=== PATIENT | female | born 1960 | race African-American/Black ===

== ENCOUNTER 2021-04-27 19:47 | Observation (INO) ==
--- NOTE | 2021-04-27 20:22 | DR.EXTPAIN ---
HPI Time seen Time Seen by Provider: 04/27/21 20:10 PCP Primary Care Physician: DIRK Complaint/Symptoms Chief Complaint:: LEFT LEG PAIN, SWELLING, TENDER, HOT TO TOUCH Self Treatment fo Chief Complaint: HYDROCODONE COVID-19 Coronavirus risk:travel/contact w/high risk person: No Has patient experienced Coronavirus symptoms: No Nurses notes reviewed Nurses Notes Review: Yes Source History Provided: Patient Mode of arrival Mode of Arrival: Wheelchair Timing Onset of Chief Complaint: 04/25/21 Other history Other History: pt is c/o of pain in LLE, h/o of venous stasis and venous stent, warm c/o of pain PMH PMH Past Medical History: Yes Past Medical History: Hypertension Past Medical History Comment: PVD Past Surgical History: Yes Past Surgical History Comment: TUBAL LIGATION, ABBLATION BOTH LEGS, VENOUS STENT TO RT LEG Family History History of Family Medical Conditions: Yes Family Medical History: [place], Coronary Artery Disease and Hypertension Social History Does patient currently use any type of tobacco product: No Have you used tobacco products in the last 12 months: No Type of Tobacco Use: None Does any household member use tobacco: No Alcohol Use: None Do you use any recreational Drugs:: No Lives With: Alone Lives Where: Home Travel Risk Coronavirus risk:travel/contact w/high risk person: No Has patient experienced Coronavirus symptoms: No Infectious screening In the last 2 months have you had wt loss of >10#?: NO Have you had fever, night sweats or hemotysis?: No Have you traveled outside the country in the last 6 months?: No Isolation: Standard ROS Review of Systems Constitutional: No Symptoms Reported Eyes: No Symptoms Reported ENTM: No Symptoms Reported Respiratoy: No Symptoms Reported Cardiovascular: No Symptoms Reported Gastrointestinal/Abdominal: No Symptoms Reported Genitourinary: No Symptoms Reported Neurological: No Symptoms Reported Musculoskeletal: See HPI, Hip and Leg Integumentary: No Symptoms Reported Hematologic/Lymphatic: No Symptoms Reported Endocrine: No Symptoms Reported Psychiatric: No Symptoms Reported All Other Systems: Reviewed and Negative PE Vital Signs Vitals: Temperature 98.1 F Pulse Rate [Left] 105 Pulse Rate 106 Respiratory Rate 24 Blood Pressure [Left Arm] 125/73 Blood Pressure 140/74 O2 Sat by Pulse Oximetry 100 General Limitations: No Limitations General Appearance: Alert, In No Apparent Distress and Obese Head Head Exam: Normal Inspection Eyes Eye exam: Normal Appearance ENT ENT Exam: Normal Exam Neck Neck Exam: Normal Inspection Chest Chest Inspection: Normal Inspection Respiratory Respiratory Exam: Normal Lung Sounds Bilat Cardiovascular Cardiovascular Exam: Regular Rate and Normal Rhythm Abdominal Exam Abdominal Exam: Normal Inspection, Normal Bowel Sounds and Soft Extremities Extremities Exam: Normal Inspection Lower Extremities Lower Leg Exam: Tenderness, Erythema and Palpable Cord Ankle Exam: Normal Inspection Foot/Toe Exam: Normal Inspection Back Back Exam: Normal Inspection Neurological Neurological Exam: Alert, Oriented X3 and CN II-XII Intact Psychiatric Psychiatric Exam: Normal Affect and Normal Mood Skin Skin Exam: Warm, Dry, Intact, Normal Color and Other (venous stasis ulcer on right) Other Exam Other Exam: warm LE, due to body habitus, difficult to doppler pulses but appear to correlating to pulse on monitor MDM Differential Diagnosis Differential Diagnosis: Abrasion, Contusion, Fracture, Hematoma, Laceration, Neurovascular Injury, Open Fracture, Sprain and Other COURSE Treatment Treatment: appears to have DVT, does not appear to be acute vascular occlusion, will get U/S Reevaluation 1st: Unchanged 2nd: Unchanged (DVT, spoke with Dr zamzam dodson eligibility consultant for [facility]ih[facility] (her vascular surgeon), Peggy on diversion, he would treat medically at this point, will admit, replacing K, spoke with Danica) Education/Counseling Education/Counseling: Patient Educated On: Treatment, Diagnosis and Prognosis ROR Labs Reviewed Laboratory Results Reviewed?: Yes Result Diagrams: 04/27/21 20:44 04/27/21 20:44 Laboratory: WBC 9.5 X10^3/uL (3.6-10.0) 04/27/21 20:44 RBC 4.15 X10^6/uL (3.5-5.4) 04/27/21 20:44 Hgb 12.1 g/dL (12.0-16.0) 04/27/21 20:44 Hct 34.6 % (36.0-47.0) L 04/27/21 20:44 MCV 83.4 fL (80.0-100.0) 04/27/21 20:44 MCH 29.2 pg (27.0-34.0) 04/27/21 20:44 MCHC 35.1 g/dL (33.0-35.0) H 04/27/21 20:44 RDW 12.8 % (11.6-16.5) 04/27/21 20:44 Plt Count 123 X10^3/uL (150.0-450.0) L 04/27/21 20:44 MPV 9.0 fL (7.4-11.0) 04/27/21 20:44 Neut % (Auto) 69.2 % (42.0-75.0) 04/27/21 20:44 Lymph % (Auto) 18.3 % (21.0-51.0) L 04/27/21 20:44 [place] % (Auto) 9.5 % (0.0-13.0) 04/27/21 20:44 Eos % (Auto) 2.6 % (0.9-2.9) 04/27/21 20:44 Baso % (Auto) 0.4 % (0.2-1.0) 04/27/21 20:44 Neut # (Auto) 6.6 x10^3/uL (2.2-4.8) H 04/27/21 20:44 Lymph # (Auto) 1.7 X10^3/uL (1.3-2.9) 04/27/21 20:44 [place] # (Auto) 0.9 x10^3/uL (0.3-0.8) H 04/27/21 20:44 Eos # (Auto) 0.3 x10^3/uL (0.0-0.2) H 04/27/21 20:44 Baso # (Auto) 0.0 X10^3/uL (0.0-0.1) 04/27/21 20:44 Absolute Nucleated RBC 0.1 /100WBC 04/27/21 20:44 PT 15.0 SECONDS (11.8-14.3) 04/27/21 20:44 INR Target Range - 04/27/21 20:44 INR 1.23 (0.8-1.3) 04/27/21 20:44 APTT 32.4 SECONDS (22.9-36.5) 04/27/21 20:44 PTT Comment - 04/27/21 20:44 D-Dimer > 20.00 ug/ml (0.0-0.57) H* 04/27/21 20:44 D-Dimer Cancelled 04/27/21 20:44 Sodium 139 mmol/L (136-145) 04/27/21 20:44 Corrected Sodium 140 mmol/L (136-145) 04/27/21 20:44 Potassium 2.7 mmol/L (3.5-5.1) L* 04/27/21 20:44 Chloride 100 mmol/L (98-107) 04/27/21 20:44 Carbon Dioxide 30.4 mmol/L (21-32) 04/27/21 20:44 BUN 29 mg/dL (7-18) H 04/27/21 20:44 Creatinine 1.22 mg/dL (0.55-1.02) H 04/27/21 20:44 Est GFR (MDRD) Af Amer 57 (>60) L 04/27/21 20:44 Est GFR (MDRD) Non-Af 47 (>60) L 04/27/21 20:44 Glucose 123 mg/dL (65-99) H 04/27/21 20:44 Calcium 8.8 mg/dL (8.5-10.1) 04/27/21 20:44 Corrected Calcium TNP 04/27/21 20:44 Magnesium 2.2 mg/dL (1.7-2.9) 04/27/21 20:44 Magnesium 2.2 mg/dL (1.7-2.9) 04/27/21 20:44 Total Bilirubin 0.80 mg/dL (0.2-1.0) 04/27/21 20:44 AST 22 Units/L (15-37) 04/27/21 20:44 ALT 20 Units/L (12-78) 04/27/21 20:44 Alkaline Phosphatase 53 Units/L (46-116) 04/27/21 20:44 Creatine Kinase 206 Units/L (26-192) H 04/27/21 20:44 CK-MB (CK-2) < 1.0 ng/mL (0-4.0) 04/27/21 20:44 CK/CKMB % Calc 0.5 % (<4) 04/27/21 20:44 Troponin I < 0.02 ng/mL (0-1.5) 04/27/21 20:44 Total Protein 7.9 g/dL (6.4-8.2) 04/27/21 20:44 Albumin 3.4 g/dL (3.4-5.0) 04/27/21 20:44 Globulin 4.5 g/dL (2.5-4.5) 04/27/21 20:44 Albumin/Globulin Ratio 0.8 Ratio (1.1-2.1) L 04/27/21 20:44 XRAY XRAY Interpreted by: Radiologist X-ray Results: IMPRESSION 1. No evidence of deep venous thrombus in the right lower extremity. 2. Occlusive deep venous thrombus in the left lower extremity from the common femoral vein to the popliteal vein. Opioid Opioid Risk Tool Age (Jarrod box if 16-45): No History of Preadolescent Sexual Abuse: No Total: 0 Total Score Risk Category: Low Risk Copyright: Placido CALIXTO predicting aberrant behaviors Diagnosis Discharge Problem: Acute hypokalemia DVT (deep venous thrombosis) Qualifiers: DVT location: lower extremity Affected thrombotic vein of extremity: unspecified lower extremity proximal vein Chronicity: acute Laterality: left Qualified Code(s): I82.4Y2 - Acute embolism and thrombosis of unspecified deep veins of left proximal lower extremity
[2021-04-27 20:53] LABS: BASOPHILS % (AUTO) 0.4 % (0.2-1.0); EOSINOPHILS # (AUTO) 0.3 x10^3/uL (0.0-0.2); EOSINOPHILS % (AUTO) 2.6 % (0.9-2.9); HEMATOCRIT 34.6 % (36.0-47.0); HEMOGLOBIN 12.1 g/dL (12.0-16.0); LYMPHOCYTES # (AUTO) 1.7 X10^3/uL (1.3-2.9); LYMPHOCYTES % (AUTO) 18.3 % (21.0-51.0); MEAN CORPUSCULAR HEMOGLOBIN 29.2 pg (27.0-34.0); MEAN CORPUSCULAR HGB CONC 35.1 g/dL (33.0-35.0); MEAN CORPUSCULAR VOLUME 83.4 fL (80.0-100.0); MONOCYTES # (AUTO) 0.9 x10^3/uL (0.3-0.8); MONOCYTES % (AUTO) 9.5 % (0.0-13.0); NEUTROPHILS # (AUTO) 6.6 x10^3/uL (2.2-4.8); NEUTROPHILS % (AUTO) 69.2 % (42.0-75.0); PLATELET COUNT 123 X10^3/uL (150.0-450.0); RED BLOOD COUNT 4.15 X10^6/uL (3.5-5.4); RED CELL DISTRIBUTION WIDTH 12.8 % (11.6-16.5); WHITE BLOOD COUNT 9.5 X10^3/uL (3.6-10.0)
[2021-04-27 21:12] LABS: ALANINE AMINOTRANSFERASE 20 Units/L (12-78); ALBUMIN 3.4 g/dL (3.4-5.0); ALKALINE PHOSPHATASE 53 Units/L (46-116); ASPARTATE AMINO TRANSFERASE 22 Units/L (15-37); BLOOD UREA NITROGEN 29 mg/dL (7-18); CALCIUM 8.8 mg/dL (8.5-10.1); CARBON DIOXIDE 30.4 mmol/L (21-32); CHLORIDE 100 mmol/L (98-107); CKMB % 0.5 % (<4); COR NA(FOR HYPERGLY) 140 mmol/L (136-145); CREATINE KINASE 206 Units/L (26-192); CREATINE KINASE MB < 1.0 ng/mL (0-4.0); CREATININE 1.22 mg/dL (0.55-1.02); MAGNESIUM 2.2 mg/dL (1.7-2.9); SODIUM 139 mmol/L (136-145); TOTAL PROTEIN 7.9 g/dL (6.4-8.2); TROPONIN I < 0.02 ng/mL (0-1.5); eGFR NON BLACK RACES 47 (>60)
[2021-04-27] MEDS ORDERED: POTASSIUM CHL 40 MEQ/NS 0.45% 500 ML IV PRN (21:15)
[2021-04-27] MEDS ORDERED: MICRO K EXTEN CAP 10 MEQ PO PRN (21:15)
[2021-04-27] MEDS ORDERED: POTASSIUM CHLORIDE LIQ 20 MEQ UDC PO PRN (21:15)
[2021-04-27] MEDS ORDERED: KLOR-CON PO PRN (21:15)
[2021-04-27] MEDS ORDERED: POTASSIUM CHL 60 MEQ/NS 0.45% 500 ML IV PRN (21:15)
--- NOTE | 2021-04-27 21:43 | VAS ---
HISTORYBIL LEG PAIN, EDEMA, REDNESSSTUDYLOWER EXT VENOUS, BILATERALCOMPARISONNo relevant prior studies available.TECHNIQUEGrayscale and color Doppler images of the lower extremities.FINDINGSRight lower extremity:Common femoral, femoral and popliteal veins demonstrate normal compressibility, color Doppler flow, waveforms and augmentation with no filling defects.Soft tissues: UnremarkableLeft lower extremity:Lack of compressibility of the common femoral vein, greater saphenous vein, femoral vein and popliteal vein with absent color Doppler flow and no detectable vascular waveforms.Soft tissues:UnremarkableIMPRESSION1. No evidence of deep venous thrombus in the right lower extremity.2. Occlusive deep venous thrombus in the left lower extremity from the common femoral vein to the popliteal vein.Electronically signed by: Tao Boudreaux (Apr 27, 2021 21:40:43)
[2021-04-27] MEDS ORDERED: K-RIDER 10 MEQ/NS 100 ML 10 MEQ/100 ML BAG IV ONE ×2 (21:49→22:38)
[2021-04-27] MEDS: K-RIDER 10 MEQ/NS 100 ML 10 MEQ/100 ML BAG IV PRN ×2 (21:55→22:54)
[2021-04-27] MEDS ORDERED: K-DUR TAB 20 MEQ PO ONE (21:56)
[2021-04-27] MEDS ORDERED: LOVENOX INJ 120 MG SYR SC SCH (22:00)
[2021-04-27] MEDS ORDERED: LOVENOX INJ 30 MG SYR SC ONE (22:08)
[2021-04-27] MEDS ORDERED: LOVENOX INJ 120 MG SYR SC ONE (22:08)
[2021-04-27] MEDS: LOVENOX INJ 150 MG SYR SC SCH (22:13)
[2021-04-28] MEDS ORDERED: ZOFRAN INJ 4 MG VIAL IVP PRN (00:37)
[2021-04-28] MEDS ORDERED: NORCO 5/325 MG TAB PO PRN ×2 (00:37→01:07)
[2021-04-28] MEDS ORDERED: MORPHINE SULFATE INJ 2 MG INJ IVP PRN ×2 (00:37→05:00)
[2021-04-28] MEDS ORDERED: VISTARIL PO PRN (00:37)
[2021-04-28] MEDS ORDERED: ZOFRAN INJ 4 MG VIAL ONE (03:27)
[2021-04-28] MEDS ORDERED: MORPHINE SULFATE INJ 2 MG INJ ONE (03:28)
[2021-04-28] MEDS: LOPRESSOR TAB 50 MG PO SCH (09:39)
[2021-04-28] MEDS: NEURONTIN CAP 300 MG PO SCH (09:40)
[2021-04-28] MEDS: ZESTORETIC 20/25 MG PO SCH (10:39)
[2021-04-28] MEDS: LOVENOX INJ 150 MG SYR SC SCH (10:40)
[2021-04-28] MEDS: ELIQUIS PO SCH ×2 (16:52→20:55)
[2021-04-29 06:16] LABS: BASOPHILS # (AUTO) 0.1 X10^3/uL (0.0-0.1); HEMOGLOBIN 11.1 g/dL (12.0-16.0); RED CELL DISTRIBUTION WIDTH 12.8 % (11.6-16.5)
[2021-04-29 06:30] LABS: ALBUMIN 2.9 g/dL (3.4-5.0); CALCIUM 8.3 mg/dL (8.5-10.1); CARBON DIOXIDE 27.4 mmol/L (21-32); COR CA(FOR HYPOALB) 9.2 mg/dL (8.5-10.1); CREATININE 1.25 mg/dL (0.55-1.02)
[2021-04-29 06:32] LABS: BASOPHILS % (AUTO) 0.8 % (0.2-1.0); EOSINOPHILS # (AUTO) 0.4 x10^3/uL (0.0-0.2); EOSINOPHILS % (AUTO) 5.4 % (0.9-2.9); HEMATOCRIT 31.5 % (36.0-47.0); LYMPHOCYTES # (AUTO) 1.8 X10^3/uL (1.3-2.9); LYMPHOCYTES % (AUTO) 22.4 % (21.0-51.0); MEAN CORPUSCULAR HEMOGLOBIN 29.3 pg (27.0-34.0); MEAN CORPUSCULAR HGB CONC 35.2 g/dL (33.0-35.0); MEAN CORPUSCULAR VOLUME 83.3 fL (80.0-100.0); MEAN PLATELET VOLUME 9.5 fL (7.4-11.0); MONOCYTES # (AUTO) 0.7 x10^3/uL (0.3-0.8); MONOCYTES % (AUTO) 8.9 % (0.0-13.0); NEUTROPHILS # (AUTO) 5.1 x10^3/uL (2.2-4.8); NEUTROPHILS % (AUTO) 62.5 % (42.0-75.0); PLATELET COUNT 129 X10^3/uL (150.0-450.0); RED BLOOD COUNT 3.79 X10^6/uL (3.5-5.4); WHITE BLOOD COUNT 8.2 X10^3/uL (3.6-10.0)
[2021-04-29] MEDS ORDERED: CLARITIN PO SCH (09:00)
[2021-04-29] MEDS ORDERED: VITAMIN D (1.25MG) PO SCH (09:00)
[2021-04-29] MEDS: ELIQUIS PO SCH ×2 (09:09→20:37)
[2021-04-29] MEDS: LOPRESSOR TAB 50 MG PO SCH (09:10)
[2021-04-29] MEDS: ZESTORETIC 20/25 MG PO SCH (09:10)
[2021-04-29] MEDS: NEURONTIN CAP 300 MG PO SCH (09:10)
[2021-04-29] MEDS: ZyrTEC TAB 10 MG PO SCH (09:10)
[2021-04-29] MEDS: K-DUR TAB 20 MEQ PO PRN (09:11)
[2021-04-29 10:32] VITALS: BMI 56.9
[2021-04-29] MEDS ORDERED: K-DUR TAB 20 MEQ PO ONE (14:14)
[2021-04-29] MEDS: NS 1/2 + KCL 20 MEQ/L 1,000 ML IV SCH ×2 (15:50→23:00)
[2021-04-29] MEDS: MILK OF MAGNESIA PO SCH (20:36)
[2021-04-29] MEDS ORDERED: COLACE CAP 100 MG PO SCH (21:00)
[2021-04-30 05:35] LABS: BASOPHILS # (AUTO) 0.1 X10^3/uL (0.0-0.1); EOSINOPHILS # (AUTO) 0.4 x10^3/uL (0.0-0.2); EOSINOPHILS % (AUTO) 6.5 % (0.9-2.9); HEMATOCRIT 31.8 % (36.0-47.0); HEMOGLOBIN 11.1 g/dL (12.0-16.0); LYMPHOCYTES % (AUTO) 30.5 % (21.0-51.0); MEAN CORPUSCULAR HEMOGLOBIN 28.9 pg (27.0-34.0); MEAN CORPUSCULAR HGB CONC 34.9 g/dL (33.0-35.0); MEAN CORPUSCULAR VOLUME 82.9 fL (80.0-100.0); MEAN PLATELET VOLUME 9.9 fL (7.4-11.0); MONOCYTES # (AUTO) 0.5 x10^3/uL (0.3-0.8); MONOCYTES % (AUTO) 7.6 % (0.0-13.0); NEUTROPHILS # (AUTO) 3.5 x10^3/uL (2.2-4.8); NEUTROPHILS % (AUTO) 54.4 % (42.0-75.0); PLATELET COUNT 151 X10^3/uL (150.0-450.0); RED BLOOD COUNT 3.84 X10^6/uL (3.5-5.4); RED CELL DISTRIBUTION WIDTH 13.1 % (11.6-16.5); WHITE BLOOD COUNT 6.5 X10^3/uL (3.6-10.0)
[2021-04-30 05:40] LABS: ALANINE AMINOTRANSFERASE 30 Units/L (12-78); ALBUMIN 2.9 g/dL (3.4-5.0); ALKALINE PHOSPHATASE 50 Units/L (46-116); ASPARTATE AMINO TRANSFERASE 36 Units/L (15-37); BLOOD UREA NITROGEN 28 mg/dL (7-18); CALCIUM 8.1 mg/dL (8.5-10.1); CARBON DIOXIDE 26.9 mmol/L (21-32); CHLORIDE 104 mmol/L (98-107); COR NA(FOR HYPERGLY) 138 mmol/L (136-145); CREATININE 1.03 mg/dL (0.55-1.02); SODIUM 138 mmol/L (136-145); TOTAL PROTEIN 6.9 g/dL (6.4-8.2); eGFR NON BLACK RACES 58 (>60)
[2021-04-30 06:07] LABS: PLATELET MORPHOLOGY COMMENT NORMAL (NORMAL)
[2021-04-30] MEDS: NS 1/2 + KCL 20 MEQ/L 1,000 ML IV SCH ×3 (08:13→14:59)
[2021-04-30] MEDS: NEURONTIN CAP 300 MG PO SCH (08:14)
[2021-04-30] MEDS: ELIQUIS PO SCH (08:14)
[2021-04-30] MEDS: K-DUR TAB 20 MEQ PO PRN (08:14)
[2021-04-30] MEDS: LOPRESSOR TAB 50 MG PO SCH (08:14)
[2021-04-30] MEDS: ZyrTEC TAB 10 MG PO SCH (08:14)
--- NOTE | 2021-04-30 10:15 | PCM.PROG ---
Progress Note - Progress Note for Day of Date of Exam: 04/30/21 - Subjective Subjective: WAS ADMITTED ON 04/28 FOR TREATMENT OF A LEFT LOWER EXTREMITY DVT. PATIENT HAS A PMH OF VENOUS PROCEDURES INCLUDING VENOUS ABLATIONS AND VENOUS STENTING. SHE IS FOLLOWED BY A VASCULAR SURGEON IN [place], [place]. DVT ON ADMISSION REVEALED AN OCCULSIVE DEEP VENOUS THROMBUS IN THE LEFT LOWER EXTREMITY FROM THE COMMON FEMORAL VEIN TO THE POPLITEAL VEIN. SHE WAS PLACED ON LOVENOX AT THE TIME OF ADMISSION AND THEN TRANSITION TO ELIQUIS. TODAY, SHE IS ALERT AND ORIENTED, LYING IN BED ON MORNING ROUNDS. SHE CONTINUES WITH COMPLAINTS OF LEFT LOWER EXTREMITY SWELLING AND TENDERNESS. ON EXAMINATION, HEART IS REGULAR IN RATE AND RHYTHM. BILATERAL LUNGS ARE NOTED TO HAVE DIMINISHED LUNG SOUNDS THROUGHOUT. ABDOMEN IS OBESE, SOFT, AND NON-TENDER WITH NORMAL BOWEL SOUNDS NOTED IN ALL QUADRANTS. THERE IS 2+ PITTING EDEMA NOTED TO LEFT LOWER EXTREMITY. THERE IS BREAKDOWN NOTED TO THE RIGHT LOWER LEG. HER VITALS THIS MORNING ARE: 99.5-100-20-99%-136/85. LABS WERE OBTAINED. ABNORMAL LAB VALUES INCLUDE THE FOLLOWING: HGB 11.1, HCT 31.8, BUN 28, CREATININE 1.03, GLUCOSE 119, CALCIUM 8.1, ALBUMIN 2.9. SHE IS CURRENTLY RECEIVING 1/2NS WITH 20MEQ KCL AT 150 ML/HR, ELIQUIS 10MG PO BID, THE POTASSIUM PROTOCOL, AND HER HOME MEDICATIONS WERE RESUMED. TODAY, WE WILL OBTAIN A CHEST CTA TO RULE OUT PE. OTHERWISE, WE WILL CONTINUE WITH CURRENT PLAN OF CARE. WE PLAN TO FOLLOW UP WITH AM LABS AND CONTINUE TO MONITOR. TIME SPENT ON CLINICAL ASSESSMENT, REVIEWING LABS AND IMAGING, DECISION MAKING, AND DOCUMENTATION GREATER THAN 45 MINUTES. - Past Medical Family Social History Past Med/Fam/Surg Hx: No changes since H&P Allergies: Allergies No Known Drug Allergies Allergy (Verified 08/20/18 10:13) - Review of Systems ROS: No change since H&P - Vital Signs and I&O's Vital Signs: Temperature 99.5 F Pulse Rate [Left] 101 Pulse Rate 106 Respiratory Rate 20 Blood Pressure [Left Arm] 136/85 Blood Pressure 140/74 O2 Sat by Pulse Oximetry 99 Intake and Output: Intake & Output 04/27/21 04/28/21 04/29/21 04/30/21 11:59 11:59 11:59 11:59 Intake Total 480 / 480 1570 / 1570 2288 / 2288 Balance 480 / 480 1570 / 1570 2288 / 2288 - Physical Exam Oriented: Normal Eyes: Normal Ear: Normal Nose: Normal Throat: Normal Respiratory: Generalized, Diminished Cardiovascular: Edema (2+ PITTING EDEMA LEFT LOWER EXTREMITY ) : Normal Auscultation: Bowel Sounds: Normal Palpation: Normal Tenderness: Normal Skin: Wound (STAGE 2 BREAKDOWN TO RIGHT ANKLE ) Musculoskeletal: Left, Leg, Swelling, Tender Psychiatric: Normal Mood Description: Calm Affect: Normal Speech Pattern: Clear, Appropriate - Laboratory and Diagnostics Result Diagrams: 04/30/21 04:39 04/30/21 04:39 Labs: Laboratory WBC 6.5 X10^3/uL (3.6-10.0) 04/30/21 04:39 RBC 3.84 X10^6/uL (3.5-5.4) 04/30/21 04:39 Hgb 11.1 g/dL (12.0-16.0) L 04/30/21 04:39 Hct 31.8 % (36.0-47.0) L 04/30/21 04:39 MCV 82.9 fL (80.0-100.0) 04/30/21 04:39 MCH 28.9 pg (27.0-34.0) 04/30/21 04:39 MCHC 34.9 g/dL (33.0-35.0) 04/30/21 04:39 RDW 13.1 % (11.6-16.5) 04/30/21 04:39 Plt Count 151 X10^3/uL (150.0-450.0) 04/30/21 04:39 Plt Count Comment Adequate (ADEQUATE) 04/30/21 04:39 MPV 9.9 fL (7.4-11.0) 04/30/21 04:39 Neut % (Auto) 54.4 % (42.0-75.0) 04/30/21 04:39 Lymph % (Auto) 30.5 % (21.0-51.0) 04/30/21 04:39 [place] % (Auto) 7.6 % (0.0-13.0) 04/30/21 04:39 Eos % (Auto) 6.5 % (0.9-2.9) H 04/30/21 04:39 Baso % (Auto) 1.0 % (0.2-1.0) 04/30/21 04:39 Neut # (Auto) 3.5 x10^3/uL (2.2-4.8) 04/30/21 04:39 Lymph # (Auto) 2.0 X10^3/uL (1.3-2.9) 04/30/21 04:39 [place] # (Auto) 0.5 x10^3/uL (0.3-0.8) 04/30/21 04:39 Eos # (Auto) 0.4 x10^3/uL (0.0-0.2) H 04/30/21 04:39 Baso # (Auto) 0.1 X10^3/uL (0.0-0.1) 04/30/21 04:39 Absolute Nucleated RBC 0.1 /100WBC 04/30/21 04:39 Plt Morphology Comment Normal (NORMAL) 04/30/21 04:39 RBC Morphology Normal (NORMAL) 04/30/21 04:39 PT 15.0 SECONDS (11.8-14.3) 04/27/21 20:44 INR Target Range - 04/27/21 20:44 INR 1.23 (0.8-1.3) 04/27/21 20:44 APTT 32.4 SECONDS (22.9-36.5) 04/27/21 20:44 PTT Comment - 04/27/21 20:44 D-Dimer > 20.00 ug/ml (0.0-0.57) H* 04/27/21 20:44 D-Dimer Cancelled 04/27/21 20:44 Sodium 138 mmol/L (136-145) 04/30/21 04:39 Corrected Sodium 138 mmol/L (136-145) 04/30/21 04:39 Potassium 3.6 mmol/L (3.5-5.1) 04/30/21 04:39 Chloride 104 mmol/L (98-107) 04/30/21 04:39 Carbon Dioxide 26.9 mmol/L (21-32) 04/30/21 04:39 BUN 28 mg/dL (7-18) H 04/30/21 04:39 Creatinine 1.03 mg/dL (0.55-1.02) H 04/30/21 04:39 Est GFR (MDRD) Af Amer > 60 (>60) 04/30/21 04:39 Est GFR (MDRD) Non-Af 58 (>60) L 04/30/21 04:39 Glucose 119 mg/dL (65-99) H 04/30/21 04:39 Calcium 8.1 mg/dL (8.5-10.1) L 04/30/21 04:39 Corrected Calcium 9.0 mg/dL (8.5-10.1) 04/30/21 04:39 Magnesium 2.2 mg/dL (1.7-2.9) 04/27/21 20:44 Magnesium 2.2 mg/dL (1.7-2.9) 04/27/21 20:44 Total Bilirubin 0.60 mg/dL (0.2-1.0) 04/30/21 04:39 AST 36 Units/L (15-37) 04/30/21 04:39 ALT 30 Units/L (12-78) 04/30/21 04:39 Alkaline Phosphatase 50 Units/L (46-116) 04/30/21 04:39 Creatine Kinase 206 Units/L (26-192) H 04/27/21 20:44 CK-MB (CK-2) < 1.0 ng/mL (0-4.0) 04/27/21 20:44 CK/CKMB % Calc 0.5 % (<4) 04/27/21 20:44 Troponin I < 0.02 ng/mL (0-1.5) 04/27/21 20:44 Total Protein 6.9 g/dL (6.4-8.2) 04/30/21 04:39 Albumin 2.9 g/dL (3.4-5.0) L 04/30/21 04:39 Globulin 4.0 g/dL (2.5-4.5) 04/30/21 04:39 Albumin/Globulin Ratio 0.7 Ratio (1.1-2.1) L 04/30/21 04:39 SARS-CoV-2 (PCR) Negative (NEGATIVE) 04/27/21 22:07 Influenza Type A (PCR) Negative (NEGATIVE) 04/27/21 22:07 Influenza Type B (PCR) Negative (NEGATIVE) 04/27/21 22:07 RSV (PCR) Negative (NEGATIVE) 04/27/21 22:07 - Plan (1) DVT (deep venous thrombosis) Status: Acute Qualifiers: DVT location: lower extremity Affected thrombotic vein of extremity: unspecified lower extremity proximal vein Chronicity: acute Laterality: left Qualified Code(s): I82.4Y2 - Acute embolism and thrombosis of unspecified deep veins of left proximal lower extremity Plan: 1/2NS WITH 20MEQ KCL AT 150 ML/HR, ELIQUIS 10MG PO BID, THE POTASSIUM PROTOCOL, AND HER HOME MEDICATIONS WERE RESUMED. (2) Hypertension Status: Chronic Qualifiers: Hypertension type: primary hypertension Qualified Code(s): I10 - Essential (primary) hypertension
[2021-04-30] MEDS: ZESTORETIC 20/25 MG PO SCH (11:03)
[2021-04-30 15:59] VITALS: BP 133/60
== END 2021-04-30 17:30 | disposition home or self-care (01) ==
LOC: OBS 19:47 → ER 19:47 → OBS 04-28 00:50
PROVIDERS: ADMIT Obstetrics & Gynecology Obstetrics; ATTEND Internal Medicine
DX: Z20.822 Contact with and (suspected) exposure to COVID-19; I82.412 Acute embolism and thrombosis of left femoral vein; I82.432 Acute embolism and thrombosis of left popliteal vein; I10 Essential (primary) hypertension; E87.6 Hypokalemia; R06.02 Shortness of breath; M79.605 Pain in left leg

== ENCOUNTER 2022-03-07 16:40 | Inpatient (IN) ==
[2022-03-07 19:29] LABS: ERYTHROCYTE SEDIMENTATION RATE 30 MM/HOUR (0-20)
[2022-03-07 19:31] LABS: BASOPHILS # (AUTO) 0.1 X10^3/uL (0.0-0.1); BASOPHILS % (AUTO) 0.9 % (0.2-1.0); EOSINOPHILS # (AUTO) 0.3 x10^3/uL (0.0-0.2); EOSINOPHILS % (AUTO) 4.9 % (0.9-2.9); HEMATOCRIT 33.2 % (36.0-47.0); HEMOGLOBIN 11.9 g/dL (12.0-16.0); LYMPHOCYTES # (AUTO) 1.5 X10^3/uL (1.3-2.9); MEAN CORPUSCULAR HEMOGLOBIN 29.4 pg (27.0-34.0); MEAN CORPUSCULAR HGB CONC 35.9 g/dL (33.0-35.0); MEAN PLATELET VOLUME 9.2 fL (7.4-11.0); MONOCYTES # (AUTO) 0.6 x10^3/uL (0.3-0.8); MONOCYTES % (AUTO) 9.3 % (0.0-13.0); NEUTROPHILS # (AUTO) 4.4 x10^3/uL (2.2-4.8); NEUTROPHILS % (AUTO) 62.9 % (42.0-75.0); RED BLOOD COUNT 4.05 X10^6/uL (3.5-5.4); RED CELL DISTRIBUTION WIDTH 13.2 % (11.6-16.5); WHITE BLOOD COUNT 6.9 X10^3/uL (3.6-10.0)
[2022-03-07 19:38] LABS: ALANINE AMINOTRANSFERASE 16 Units/L (12-78); ALBUMIN 3.1 g/dL (3.4-5.0); ALKALINE PHOSPHATASE 50 Units/L (46-116); ASPARTATE AMINO TRANSFERASE 19 Units/L (15-37); BLOOD UREA NITROGEN 17 mg/dL (7-18); CALCIUM 8.7 mg/dL (8.5-10.1); CARBON DIOXIDE 29.6 mmol/L (21-32); CHLORIDE 103 mmol/L (98-107); COR CA(FOR HYPOALB) 9.4 mg/dL (8.5-10.1); COR NA(FOR HYPERGLY) 140 mmol/L (136-145); CREATININE 0.84 mg/dL (0.55-1.02); SODIUM 139 mmol/L (136-145); TOTAL PROTEIN 7.4 g/dL (6.4-8.2); eGFR NON BLACK RACES > 60 (>60)
[2022-03-07] MEDS ORDERED: HEPARIN SODIUM INJ 5000 UNITS IVP ONE (20:44)
[2022-03-07] MEDS: NS 1,000 ML IV 1,000 ML IV SCH (21:19)
[2022-03-07] MEDS: HEPARIN SODIUM IN D5W 25,000 UNITS/500 ML BAG IV PRN (21:20)
[2022-03-07] MEDS ORDERED: TUSSIONEX PENNKINETIC SUSP PO PRN (21:44)
[2022-03-07] MEDS: ROBITUSSIN DM PO PRN (22:17)
[2022-03-08] MEDS ORDERED: NS 100 ML IV 100 ML ONE (01:34)
[2022-03-08 04:07] LABS: MEAN PLATELET VOLUME 9.1 fL (7.4-11.0); RED CELL DISTRIBUTION WIDTH 13.2 % (11.6-16.5)
[2022-03-08 04:10] LABS: BASOPHILS # (AUTO) 0.1 X10^3/uL (0.0-0.1); BASOPHILS % (AUTO) 1.2 % (0.2-1.0); EOSINOPHILS # (AUTO) 0.3 x10^3/uL (0.0-0.2); EOSINOPHILS % (AUTO) 3.4 % (0.9-2.9); HEMATOCRIT 33.2 % (36.0-47.0); HEMOGLOBIN 11.8 g/dL (12.0-16.0); LYMPHOCYTES # (AUTO) 2.9 X10^3/uL (1.3-2.9); MEAN CORPUSCULAR HEMOGLOBIN 29.1 pg (27.0-34.0); MEAN CORPUSCULAR HGB CONC 35.4 g/dL (33.0-35.0); MEAN CORPUSCULAR VOLUME 82.1 fL (80.0-100.0); MONOCYTES # (AUTO) 0.9 x10^3/uL (0.3-0.8); MONOCYTES % (AUTO) 10.3 % (0.0-13.0); NEUTROPHILS # (AUTO) 4.8 x10^3/uL (2.2-4.8); NEUTROPHILS % (AUTO) 53.1 % (42.0-75.0); RED BLOOD COUNT 4.04 X10^6/uL (3.5-5.4)
[2022-03-08 04:20] LABS: ALANINE AMINOTRANSFERASE 17 Units/L (12-78); ALBUMIN 3.1 g/dL (3.4-5.0); ALKALINE PHOSPHATASE 56 Units/L (46-116); ASPARTATE AMINO TRANSFERASE 20 Units/L (15-37); BLOOD UREA NITROGEN 16 mg/dL (7-18); CALCIUM 8.4 mg/dL (8.5-10.1); CARBON DIOXIDE 30.1 mmol/L (21-32); CHLORIDE 103 mmol/L (98-107); COR CA(FOR HYPOALB) 9.1 mg/dL (8.5-10.1); CREATININE 0.84 mg/dL (0.55-1.02); SODIUM 140 mmol/L (136-145); TOTAL PROTEIN 7.4 g/dL (6.4-8.2); eGFR NON BLACK RACES > 60 (>60)
[2022-03-08] MEDS ORDERED: POTASSIUM CHL 40 MEQ/NS 0.45% 500 ML IV PRN (04:24)
[2022-03-08] MEDS ORDERED: POTASSIUM CHLORIDE LIQ 20 MEQ UDC PO PRN (04:24)
[2022-03-08] MEDS ORDERED: MICRO K EXTEN CAP 10 MEQ PO PRN (04:24)
[2022-03-08] MEDS ORDERED: K-RIDER 10 MEQ/NS 100 ML 10 MEQ/100 ML BAG IV PRN (04:24)
[2022-03-08] MEDS ORDERED: POTASSIUM CHL 60 MEQ/NS 0.45% 500 ML IV PRN (04:24)
[2022-03-08] MEDS ORDERED: MAGNESIUM SULFATE 1 GRAM/100 mL PREMIX 1 G/100 ML BAG IV PRN (04:24)
[2022-03-08] MEDS ORDERED: KLOR-CON PO PRN (04:24)
[2022-03-08] MEDS: K-DUR TAB 20 MEQ PO PRN ×2 (05:06→08:57)
[2022-03-08] MEDS: ROBITUSSIN DM PO PRN (05:06)
[2022-03-08 10:17] VITALS: BMI 58.1
[2022-03-08] MEDS ORDERED: HEPARIN SODIUM INJ 5000 UNITS IVP ONE (12:00)
[2022-03-08] MEDS ORDERED: HEPARIN SODIUM INJ 5000 UNITS ONE (12:03)
[2022-03-08] MEDS: HEPARIN SODIUM IN D5W 25,000 UNITS/500 ML BAG IV PRN (12:05)
[2022-03-08] MEDS ORDERED: ZOFRAN INJ 4 MG VIAL IVP PRN (13:26)
[2022-03-08] MEDS ORDERED: ZOFRAN INJ 4 MG VIAL ONE (13:28)
--- NOTE | 2022-03-08 14:48 | DR.H&P ---
H&P - History & Physical for Day of: H&P Date: 03/07/22 - Chief Complaint Chief Complaint: LEFT LEG PAIN AND SWELLING - History of Present Illness History of Present Illness: IS A 62 YEAR OLD PATIENT OF OURS. SHE PRESENTED TO THE OFFICE WITH COMPLAINTS OF LEFT LEG PAIN AND SWELLING X 2 DAYS. SHE DESCRIBED PAIN DULL, CONSTANT, AND RATED PAIN A 5/10. THERE ARE NO ALLEVIATING FACTORS. SHE WAS SENT FOR AN OUTPATIENT VENOUS DOPPLER ON 03/07/22. IT REVEALED: 1.Extensive left-sided DVT. 2. No DVT on the right. WE ADMITTED PATIENT TO THE HOSPITAL FOR FURTHER EVALUATION AND TREATMENT OF LEFT LEG DVT. HER PMH INCLUDES: HTN, ARTHRITIS, CHRONIC BACK PAIN, RIGHT LEG VASCULAR SURGERY, TUBAL LIGATION, WREATH MACHINE TENDER SURGERY. ADDITIONALLY, SHE REPORTS TESTING POSITIVE FOR COVID-19 THREE WEEKS AGO. ON ARRIVAL TO THE HOSPITAL, VITALS WERE: 98.3-85-2 0-95%-138/89. LABS WERE OBTAINED. WBC 6.9, RBC 4.05, HGB 11.9, HCT 33.2, PLT COUNT 180, SODIUM 139, POTASSIUM 3.0, BUN 17, CREATININE 139, CALCIUM 8.7, BUN 0.60, AST 19, ALT 16, ALK PHOS 139, CRP 28.40, TOTAL PROTEIN 7.4, ALBUMIN 3.1. A HYPERCOAGULABLE PANEL WAS OBTAINED. COVID-19 POSITIVE. SHE WAS PLACED IN THE INTENSIVE CARE UNIT. WE STARTED NORMAL SALINE AT 80 ML/HR, HEPARIN DRIP IV PER PROTOCOL, ZOFRAN 4MG IV Q8H PRN, TUSSIONEX 5ML PO Q12H PRN, ROBITUSSIN DM 10ML PO Q4H PRN, AND THE POTASSIUM AND MAGNESIUM PROTOCOLS. WE WILL OBTAIN A CHEST CTA TO RULE OUT PULMONARY EMBOLISM DUE TO OCCASIONAL SHORTNESS OF BREATH. OTHERWISE, WE WILL FOLLOW-UP WITH AM LABS AND CONTINUE TO MONITOR. TIME SPENT ON CLINICAL ASSESSMENT, REVIEWING LABS AND IMAGING, DECISION MAKING, AND DOCUMENTATION GREATER THAN 75 MINUTES. - Past Medical History Past Medical History: Arthritis, Hypertension Additional Medical History: CHRONIC BACK PAIN - Past Surgical History Surgical History: WREATH MACHINE TENDER Surgery, Other - Family History Family Medical History: Sudden Cardiac , Hypertension - Social History Does patient currently use any type of tobacco product: No Have you used tobacco products in the last 12 months: No Does any household member use tobacco: No Alcohol Use: None Drug Use: None - Medications Home Medications: No Known Drug Allergies Allergy (Verified 08/20/18 10:13) CONTINUE taking the following medications oxycodone-acetaminophen 10 mg-325 mg tablet 1 tab PO Q8H PRN pain 03/07/22 [History] - Review of Systems Constitutional: Weakness Eyes: No Symptoms Reported ENT: No Symptoms Reported Respiratory: Shortness of Breath, SOB with Excertion Cardiovascular: No Symptoms Reported Gastrointestinal: No Symptoms Reported Genitourinary: No Symptoms Reported Musculoskeletal: Leg Pain (LEFT ) Skin: No Symptoms Reported Neurological: No Symptoms Reported - Physical Exam Vital Signs: Temperature 98.4 F Pulse Rate 105 Respiratory Rate 31 Blood Pressure [Left Arm] 133/60 Blood Pressure 138/63 O2 Sat by Pulse Oximetry 98 Oriented: Normal Eyes: Normal Ear: Normal Nose: Normal Throat: Normal Respiratory: Diminished Throughout Cardiovascular: Normal : Normal Auscultation: Bowel Sounds: Normal Palpation: Normal Tenderness: Normal Skin: Normal Musculoskeletal: Left, Leg, Swelling, Tender Psychiatric: Normal Mood Description: Calm Affect: Normal Speech Pattern: Clear - Assessment/Plan (1) Left leg DVT Qualifiers: Affected thrombotic vein of extremity: femoral Chronicity: acute Qualified Code(s): I82.412 - Acute embolism and thrombosis of left femoral vein Status: Acute Plan: ADMIT, NORMAL SALINE AT 80 ML/HR, HEPARIN DRIP IV PER PROTOCOL, ZOFRAN 4MG IV Q8H PRN, TUSSIONEX 5ML PO Q12H PRN, ROBITUSSIN DM 10ML PO Q4H PRN, AND THE POTASSIUM AND MAGNESIUM PROTOCOLS. (2) Shortness of breath Status: Acute (3) Acute hypokalemia Status: Acute (4) COVID-19 Status: Acute (5) Hypertension Qualifiers: Hypertension type: primary hypertension Qualified Code(s): I10 - Essential (primary) hypertension Status: Chronic - Allergies Allergies/Adverse Reactions: Allergies Allergy/AdvReac Type Severity Reaction Status Date / Time No Known Drug Allergies Allergy Verified 08/20/18 10:13
[2022-03-08] MEDS: NS 1,000 ML IV 1,000 ML IV SCH (23:48)
[2022-03-09] MEDS: NS 1,000 ML IV 1,000 ML IV SCH ×3 (00:50→10:29)
[2022-03-09 02:20] LABS: BASOPHILS # (AUTO) 0.1 X10^3/uL (0.0-0.1); BASOPHILS % (AUTO) 1.3 % (0.2-1.0); EOSINOPHILS # (AUTO) 0.4 x10^3/uL (0.0-0.2); EOSINOPHILS % (AUTO) 4.7 % (0.9-2.9); HEMATOCRIT 29.5 % (36.0-47.0); HEMOGLOBIN 10.6 g/dL (12.0-16.0); LYMPHOCYTES # (AUTO) 2.7 X10^3/uL (1.3-2.9); LYMPHOCYTES % (AUTO) 34.8 % (21.0-51.0); MEAN CORPUSCULAR HEMOGLOBIN 29.5 pg (27.0-34.0); MEAN CORPUSCULAR HGB CONC 35.9 g/dL (33.0-35.0); MEAN CORPUSCULAR VOLUME 82.3 fL (80.0-100.0); MEAN PLATELET VOLUME 9.4 fL (7.4-11.0); MONOCYTES # (AUTO) 0.9 x10^3/uL (0.3-0.8); MONOCYTES % (AUTO) 11.4 % (0.0-13.0); NEUTROPHILS # (AUTO) 3.7 x10^3/uL (2.2-4.8); NEUTROPHILS % (AUTO) 47.8 % (42.0-75.0); RED BLOOD COUNT 3.59 X10^6/uL (3.5-5.4); RED CELL DISTRIBUTION WIDTH 13.3 % (11.6-16.5); WHITE BLOOD COUNT 7.7 X10^3/uL (3.6-10.0)
[2022-03-09 02:26] LABS: ALANINE AMINOTRANSFERASE 18 Units/L (12-78); ALBUMIN 2.8 g/dL (3.4-5.0); ALKALINE PHOSPHATASE 55 Units/L (46-116); ASPARTATE AMINO TRANSFERASE 22 Units/L (15-37); BLOOD UREA NITROGEN 11 mg/dL (7-18); CALCIUM 8.2 mg/dL (8.5-10.1); CARBON DIOXIDE 29.8 mmol/L (21-32); CHLORIDE 106 mmol/L (98-107); COR CA(FOR HYPOALB) 9.2 mg/dL (8.5-10.1); CREATININE 0.78 mg/dL (0.55-1.02); SODIUM 142 mmol/L (136-145); TOTAL PROTEIN 6.9 g/dL (6.4-8.2); eGFR NON BLACK RACES > 60 (>60)
[2022-03-09] MEDS: HEPARIN SODIUM IN D5W 25,000 UNITS/500 ML BAG IV PRN (03:28)
[2022-03-09] MEDS: K-DUR TAB 20 MEQ PO PRN (05:59)
[2022-03-09] MEDS ORDERED: ELIQUIS PO SCH (09:45)
[2022-03-09 11:12] VITALS: BP 149/69
[2022-03-11 08:12] LABS: ANTI-NUCLEAR ANTIBODY TEST None Detected (None Detected); PROTEIN C ACTIVITY 147 % (83-168)
[2022-03-13 07:06] LABS: PROTHROMBIN G20210A Negative
== END 2022-03-09 11:57 | disposition home or self-care (01) | DRG 299 ==
LOC: ICU 17:10
PROVIDERS: ADMIT Internal Medicine; ATTEND Internal Medicine
DX: U07.1 COVID-19; I10 Essential (primary) hypertension; L97.819 Non-pressure chronic ulcer of other part of right lower leg with unspecified severity; M79.662 Pain in left lower leg; E87.1 Hypo-osmolality and hyponatremia; R60.0 Localized edema; Z86.718 Personal history of other venous thrombosis and embolism; I82.412 Acute embolism and thrombosis of left femoral vein; I83.018 Varicose veins of right lower extremity with ulcer other part of lower leg

== ENCOUNTER 2024-09-06 16:32 | Observation (INO) ==
--- NOTE | 2024-09-06 17:22 | DR.EXTPAIN ---
HPI Time seen Time Seen by Provider: 09/06/24 17:22 PCP Primary Care Physician: Trina Chowdhury Complaint/Symptoms Chief Complaint Doctor Comments: A 64 year old famale with complaints of drainage for wound and pain at wound site to right lower leg. Patient was wound was healing in July, but last week started having drainage and becoming painful. Chief Complaint:: PT states she has a venous ulcer that she has been seeing a wound clinic about on her lower right leg. Pt states she was d/c from their care in July d/t the wound closing and healing up. Pt noticed some drainage last week from the wound and started having pain Friday. Pt called the wound clinic but they cannot see her until and she would like pain medication until then. Denies fever, chills, n/v. COVID-19 Coronavirus risk:travel/contact w/high risk person: No Has patient experienced Coronavirus symptoms: No Nurses notes reviewed Nurses Notes Review: Yes Source History Provided: Patient and Family Member Mode of arrival Mode of Arrival: Ambulatory Timing Onset of Chief Complaint: 09/03/24 Associated signs and symptoms Associated Signs and Symptoms: Pain PMH PMH Past Medical History: Yes Past Medical History: Arthritis and Hypertension Past Medical History Comment: DVT Past Surgical History: Yes Surgical History: REHABILITATION CASEWORKER Surgery, Ortho Surgery and Other Family History History of Family Medical Conditions: Yes Family Medical History: Sudden Cardiac and Hypertension Social History Does patient currently use any type of tobacco product: No Have you used tobacco products in the last 12 months: No Type of Tobacco Use: None Does any household member use tobacco: No Alcohol Use: None Do you use any recreational Drugs:: No Lives With: Alone Lives Where: Home Travel Risk Coronavirus risk:travel/contact w/high risk person: No Has patient experienced Coronavirus symptoms: No Infectious screening In the last 2 months have you had wt loss of >10#?: NO Have you had fever, night sweats or hemotysis?: No Have you traveled outside the country in the last 6 months?: No Isolation: Contact ROS Review of Systems Constitutional: No Symptoms Reported Eyes: No Symptoms Reported ENTM: No Symptoms Reported Respiratoy: No Symptoms Reported Cardiovascular: No Symptoms Reported Gastrointestinal/Abdominal: No Symptoms Reported; negative Diarrhea or Vomiting Genitourinary: No Symptoms Reported Neurological: No Symptoms Reported Musculoskeletal: See HPI, Right and Leg (wound with drainage and pain at site) Integumentary: See HPI and Wound Hematologic/Lymphatic: No Symptoms Reported Endocrine: No Symptoms Reported Psychiatric: No Symptoms Reported All Other Systems: Reviewed and Negative PE Vital Signs Vitals: Vital Signs Temperature 98.5 F Pulse Rate 85 Respiratory Rate 22 Respiratory Rate 22 Blood Pressure 146/65 O2 Sat by Pulse Oximetry 98 General Limitations: No Limitations General Appearance: Alert and In No Apparent Distress Head Head Exam: Normal Inspection Eyes Eye exam: Normal Appearance ENT ENT Exam: Normal Exam Neck Neck Exam: Normal Inspection Chest Chest Inspection: Normal Inspection Respiratory Respiratory Exam: Normal Lung Sounds Bilat Respiratory Exam: Bilateral: Clear to Auscultation Cardiovascular Cardiovascular Exam: Regular Rate and Normal Rhythm Abdominal Exam Abdominal Exam: Normal Inspection, Normal Bowel Sounds and Soft Back Back Exam: Normal Inspection Neurological Neurological Exam: Alert, Oriented X3 and CN II-XII Intact Psychiatric Psychiatric Exam: Normal Affect and Normal Mood Skin Skin Exam: Warm, Dry, Intact and Normal Color Type of Lesion: Abscess (Right lower ext audrey and lower leg) Distribution: RLE Description: Tenderness, Erythematous, Swelling and Discharge MDM Differential Diagnosis Differential Diagnosis: Other (Cellulitis, DVT, Abcess) COURSE Treatment Treatment: See treatment while in ED Consultation Call Returned: 21:14 Consultation Comments: Spoke with Dr. Watts. He agrees to admit patient Education/Counseling Education/Counseling: Patient, Family and Counseling Educated On: Treatment and Diagnosis ROR Labs Reviewed Laboratory Results Reviewed?: Yes 09/10/24 05:40 09/10/24 05:40 Laboratory: WBC 10.5 X10^3/uL (3.6-10.0) H 09/06/24 18:12 RBC 4.72 X10^6/uL (3.5-5.4) 09/06/24 18:12 Hgb 14.1 g/dL (12.0-16.0) 09/06/24 18:12 Hct 40.7 % (36.0-47.0) 09/06/24 18:12 MCV 86.2 fL (80.0-100.0) 09/06/24 18:12 MCH 30.0 pg (27.0-34.0) 09/06/24 18:12 MCHC 34.8 g/dL (33.0-35.0) 09/06/24 18:12 RDW 13.3 % (11.6-16.5) 09/06/24 18:12 Plt Count 189 X10^3/uL (150.0-450.0) 09/06/24 18:12 MPV 9.5 fL (7.4-11.0) 09/06/24 18:12 Neut % (Auto) 76.8 % (42.0-75.0) H 09/06/24 18:12 Lymph % (Auto) 15.3 % (21.0-51.0) L 09/06/24 18:12 [place] % (Auto) 5.7 % (0.0-13.0) 09/06/24 18:12 Eos % (Auto) 1.3 % (0.9-2.9) 09/06/24 18:12 Baso % (Auto) 0.9 % (0.2-1.0) 09/06/24 18:12 Neut # (Auto) 8.1 x10^3/uL (2.2-4.8) H 09/06/24 18:12 Lymph # (Auto) 1.6 X10^3/uL (1.3-2.9) 09/06/24 18:12 [place] # (Auto) 0.6 x10^3/uL (0.3-0.8) 09/06/24 18:12 Eos # (Auto) 0.1 x10^3/uL (0.0-0.2) 09/06/24 18:12 Baso # (Auto) 0.1 X10^3/uL (0.0-0.1) 09/06/24 18:12 Absolute Nucleated RBC 0.1 /100WBC 09/06/24 18:12 Sodium 139 mmol/L (136-145) 09/06/24 18:12 Corrected Sodium 139 mmol/L (136-145) 09/06/24 18:12 Potassium 3.4 mmol/L (3.5-5.1) L 09/06/24 18:12 Chloride 102 mmol/L (98-107) 09/06/24 18:12 Carbon Dioxide 30.4 mmol/L (21-32) 09/06/24 18:12 BUN 27 mg/dL (7-18) H 09/06/24 18:12 Creatinine 0.97 mg/dL (0.55-1.02) 09/06/24 18:12 Est GFR (MDRD) Af Amer > 60 (>60) 09/06/24 18:12 Est GFR (MDRD) Non-Af > 60 (>60) 09/06/24 18:12 Glucose 116 mg/dL (65-99) H 09/06/24 18:12 Calcium 8.9 mg/dL (8.5-10.1) 09/06/24 18:12 Corrected Calcium TNP 09/06/24 18:12 Total Bilirubin 0.60 mg/dL (0.2-1.0) 09/06/24 18:12 AST 18 Units/L (15-37) 09/06/24 18:12 ALT 23 Units/L (12-78) 09/06/24 18:12 Alkaline Phosphatase 68 Units/L (46-116) 09/06/24 18:12 Total Protein 7.6 g/dL (6.4-8.2) 09/06/24 18:12 Albumin 3.4 g/dL (3.4-5.0) 09/06/24 18:12 Globulin 4.2 g/dL (2.5-4.5) 09/06/24 18:12 Albumin/Globulin Ratio 0.8 Ratio (1.1-2.1) L 09/06/24 18:12 XRAY XRAY Interpreted by: Radiologist X-ray Results: Negative for DVT Opioid Opioid Risk Tool Age (Jarrod box if 16-45): No History of Preadolescent Sexual Abuse: No Total: 0 Total Score Risk Category: Low Risk Copyright: Placido CALIXTO predicting aberrant behaviors Discharge Plan Diagnosis Discharge Problem: Cellulitis of leg, right Pain and swelling of lower leg Qualifiers: Laterality: right Qualified Code(s): M79.661 - Pain in right lower leg Discharge Plan Patient Disposition: 09 ADMITTED INPATIENT Condition: Stable
[2024-09-06 18:20] LABS: BASOPHILS # (AUTO) 0.1 X10^3/uL (0.0-0.1); BASOPHILS % (AUTO) 0.9 % (0.2-1.0); EOSINOPHILS # (AUTO) 0.1 x10^3/uL (0.0-0.2); EOSINOPHILS % (AUTO) 1.3 % (0.9-2.9); HEMATOCRIT 40.7 % (36.0-47.0); HEMOGLOBIN 14.1 g/dL (12.0-16.0); LYMPHOCYTES # (AUTO) 1.6 X10^3/uL (1.3-2.9); LYMPHOCYTES % (AUTO) 15.3 % (21.0-51.0); MEAN CORPUSCULAR HGB CONC 34.8 g/dL (33.0-35.0); MEAN CORPUSCULAR VOLUME 86.2 fL (80.0-100.0); MEAN PLATELET VOLUME 9.5 fL (7.4-11.0); MONOCYTES # (AUTO) 0.6 x10^3/uL (0.3-0.8); MONOCYTES % (AUTO) 5.7 % (0.0-13.0); NEUTROPHILS # (AUTO) 8.1 x10^3/uL (2.2-4.8); NEUTROPHILS % (AUTO) 76.8 % (42.0-75.0); PLATELET COUNT 189 X10^3/uL (150.0-450.0); RED BLOOD COUNT 4.72 X10^6/uL (3.5-5.4); RED CELL DISTRIBUTION WIDTH 13.3 % (11.6-16.5); WHITE BLOOD COUNT 10.5 X10^3/uL (3.6-10.0)
[2024-09-06 18:31] LABS: ALANINE AMINOTRANSFERASE 23 Units/L (12-78); ALBUMIN 3.4 g/dL (3.4-5.0); ALKALINE PHOSPHATASE 68 Units/L (46-116); ASPARTATE AMINO TRANSFERASE 18 Units/L (15-37); BLOOD UREA NITROGEN 27 mg/dL (7-18); CALCIUM 8.9 mg/dL (8.5-10.1); CARBON DIOXIDE 30.4 mmol/L (21-32); CHLORIDE 102 mmol/L (98-107); COR NA(FOR HYPERGLY) 139 mmol/L (136-145); CREATININE 0.97 mg/dL (0.55-1.02); GLUCOSE 116 mg/dL (65-99); POTASSIUM 3.4 mmol/L (3.5-5.1); SODIUM 139 mmol/L (136-145); TOTAL PROTEIN 7.6 g/dL (6.4-8.2); eGFR NON BLACK RACES > 60 (>60)
--- NOTE | 2024-09-06 18:51 | VAS ---
EXAM:LEVUNIBCHRIGHT Lower extremity DVT Doppler ultrasound examination.HISTORY:prior DVT - leg wound RT; Lower extremity pain, swelling, and edemaCOMPARISON:None.TECHNIQUE:Ultrasoun d of the deep venous vasculature of the right lower extremity was performed. Color and spectral doppler imaging was utilized.FINDINGS:The deep veins of the right lower extremity are normal in size and configuration. No intraluminal filling defects are seen on grayscale or color flow imaging.The veins compress normally. Doppler waveforms are normal at rest and with augmentation.IMPRESSION:Negative right lower extremity DVT ultrasound exam.THIS IS AN ELECTRONICALLY VERIFIED FINAL REPORT09/06/2024 6:47 PM - Electronically signed by Sukumar Marquez MD
[2024-09-06] MEDS ORDERED: NORCO 10/325 TAB ONE (19:23)
[2024-09-06] MEDS: NORCO 10/325 TAB PO ONE (19:25)
[2024-09-06] MEDS: K-DUR TAB 20 MEQ PO PRN (20:12)
[2024-09-06] MEDS ORDERED: VANCOMYCIN HCL ONE (21:49)
[2024-09-06] MEDS ORDERED: PHARMACY CONSULT - VANCOMYCIN XX SCH (22:00)
[2024-09-06] MEDS: NS 1,000 ML IV 1,000 ML IV SCH (22:05)
[2024-09-06] MEDS: VANCOMYCIN IV *PREMIX 1 G/200 ML BAG 1 G/200 ML PIGGYBACK IV ONE (22:06)
[2024-09-06] MEDS ORDERED: ZOFRAN TAB 4 MG PO PRN (22:25)
[2024-09-06] MEDS ORDERED: VANCOMYCIN IV *PREMIX 1 G/200 ML BAG 1 G/200 ML PIGGYBACK IV SCH (23:00)
[2024-09-06 23:23] VITALS: BMI 60.4
[2024-09-06] MEDS: MOTRIN TAB 600 MG PO PRN (23:33)
[2024-09-07] MEDS: VANCOMYCIN HCL 1 G in D5W 250 ML IV 250 ML IV ONE (00:25)
[2024-09-07 06:30] LABS: BASOPHILS % (AUTO) 0.2 % (0.2-1.0); EOSINOPHILS # (AUTO) 0.1 x10^3/uL (0.0-0.2); EOSINOPHILS % (AUTO) 0.5 % (0.9-2.9); HEMATOCRIT 34.2 % (36.0-47.0); HEMOGLOBIN 11.9 g/dL (12.0-16.0); LYMPHOCYTES # (AUTO) 1.6 X10^3/uL (1.3-2.9); LYMPHOCYTES % (AUTO) 9.6 % (21.0-51.0); MEAN CORPUSCULAR HGB CONC 34.9 g/dL (33.0-35.0); MEAN CORPUSCULAR VOLUME 85.9 fL (80.0-100.0); MEAN PLATELET VOLUME 10.2 fL (7.4-11.0); NEUTROPHILS # (AUTO) 13.7 x10^3/uL (2.2-4.8); NEUTROPHILS % (AUTO) 83.7 % (42.0-75.0); PLATELET COUNT 168 X10^3/uL (150.0-450.0); RED BLOOD COUNT 3.98 X10^6/uL (3.5-5.4); RED CELL DISTRIBUTION WIDTH 13.7 % (11.6-16.5); WHITE BLOOD COUNT 16.4 X10^3/uL (3.6-10.0)
[2024-09-07 07:12] LABS: ALANINE AMINOTRANSFERASE 18 Units/L (12-78); ALBUMIN 2.7 g/dL (3.4-5.0); ALKALINE PHOSPHATASE 44 Units/L (46-116); ASPARTATE AMINO TRANSFERASE 21 Units/L (15-37); BLOOD UREA NITROGEN 25 mg/dL (7-18); CALCIUM 8.3 mg/dL (8.5-10.1); CHLORIDE 103 mmol/L (98-107); COR CA(FOR HYPOALB) 9.3 mg/dL (8.5-10.1); CREATININE 0.96 mg/dL (0.55-1.02); GLUCOSE 110 mg/dL (65-99); MAGNESIUM 1.8 mg/dL (2.0-2.9); SODIUM 140 mmol/L (136-145); TOTAL PROTEIN 6.3 g/dL (6.4-8.2); eGFR NON BLACK RACES > 60 (>60)
[2024-09-07] MEDS ORDERED: CONSULT PHARMACY - POTASSIUM & MAGNESIUM XX SCH (08:00)
[2024-09-07] MEDS: MAG-OX TAB PO SCH (08:21)
[2024-09-07] MEDS: VANCOMYCIN HCL 1 G in D5W 250 ML IV 250 ML IV SCH (08:21)
[2024-09-07] MEDS: K-DUR TAB 20 MEQ PO SCH (08:21)
[2024-09-07] MEDS: NS 250 ML IV 250 ML IV ONE (08:22)
[2024-09-07] MEDS ORDERED: VANCOMYCIN IV *PREMIX 1 G/200 ML BAG 1 G/200 ML PIGGYBACK IV SCH (09:00)
[2024-09-07] MEDS: OXYBUTYNIN CHLORIDE ER PO SCH (09:46)
[2024-09-07] MEDS: ELIQUIS PO SCH (09:46)
[2024-09-07] MEDS: PATIENT'S HOME MEDICATION (Vibegron [Gemtesa] 75 mg tablet) PO SCH (09:49)
--- NOTE | 2024-09-07 10:10 | DR.H&P ---
H&P History & Physical for Day of: H&P Date: 09/07/24 Chief Complaint Chief Complaint: RLE wound History of Present Illness History of Present Illness: Ms Olivares is a 64y/o female with a PMH of left leg DVT, HTN, urinary incontinence and chronic right leg ulcer presented with worsening leg pain. She reports worsening leg swelling and redness on the right side with wound drainage. She has had that wound for a while and was being seen at wound care clinic in [place]. She states she was dismissed in Jul as the wound had closed up. She has seen Vascular in the past and was told she has poor circulation. ER work up showed right leg wound with drainage and erythema. US was negative for DVT. She was started on IV antibiotics and fluids. She feels slightly better today. Labs/imaging reviewed: -WBCc 16 Hgb 11.9 K 3.0 Mag 1.8 BUN/Cr 25/0.96 -Wound Cx pending -US neg for DVT Plan: continue IV antibiotics, follow wound Cx. Consult Dr Salu. Continue wound care as per nursing, keep leg elevated, monitor redness. Resume home medications. Replace electrolytes. Continue pain control. Monitor AM labs/imaging. Past Medical History Past Medical History: Arthritis and Hypertension Additional Medical History: CHRONIC BACK PAIN Past Surgical History Surgical History: BLOCK HAND Surgery Family History Family Medical History: Hypertension Social History Does patient currently use any type of tobacco product: No Type of Tobacco Use: None Alcohol Use: None Drug Use: None Medications Home Medications: Home Medications Medication Instructions Recorded Confirmed Type lisinopril 20 20 - 25 tab PO QAM 04/27/21 09/06/24 History mg-hydrochlorothiazide 25 mg tablet metoprolol tartrate 50 mg tablet 100 mg PO QAM 04/27/21 09/06/24 History cetirizine 10 mg tablet 10 mg PO QPM 12/19/22 09/06/24 History fluticasone propionate 50 1 spray intranasal QDAY 12/19/22 09/06/24 History mcg/actuation nasal spray,suspension gabapentin 100 mg capsule 100 mg PO QPM 12/19/22 09/06/24 History hydrocodone 7.5 mg-acetaminophen 1 tab PO QID PRN 12/19/22 09/06/24 History 325 mg tablet metoprolol tartrate 50 mg tablet 50 mg PO HS 09/06/24 09/06/24 History oxybutynin chloride 15 mg 15 mg PO QDAY 09/06/24 09/06/24 History tablet,extended release 24 hr vibegron 75 mg tablet (Gemtesa) 75 mg PO QDAY 09/06/24 09/06/24 History Allergies Allergies Allergy/AdvReac Type Severity Reaction Status Date / Time sulfamethoxazole Allergy Intermediate RASH Verified 09/06/24 23:23 [From Bactrim] trimethoprim [From Bactrim] Allergy Intermediate RASH Verified 09/06/24 23:23 Labs 09/07/24 05:45 09/07/24 05:45 Labs: 09/06/24 23:48 Leg - Right Wound Gram Stain - Final Laboratory WBC 16.4 X10^3/uL (3.6-10.0) H 09/07/24 05:45 RBC 3.98 X10^6/uL (3.5-5.4) 09/07/24 05:45 Hgb 11.9 g/dL (12.0-16.0) L D 09/07/24 05:45 Hct 34.2 % (36.0-47.0) L 09/07/24 05:45 MCV 85.9 fL (80.0-100.0) 09/07/24 05:45 MCH 30.0 pg (27.0-34.0) 09/07/24 05:45 MCHC 34.9 g/dL (33.0-35.0) 09/07/24 05:45 RDW 13.7 % (11.6-16.5) 09/07/24 05:45 Plt Count 168 X10^3/uL (150.0-450.0) 09/07/24 05:45 MPV 10.2 fL (7.4-11.0) 09/07/24 05:45 Neut % (Auto) 83.7 % (42.0-75.0) H 09/07/24 05:45 Lymph % (Auto) 9.6 % (21.0-51.0) L 09/07/24 05:45 [place] % (Auto) 6.0 % (0.0-13.0) 09/07/24 05:45 Eos % (Auto) 0.5 % (0.9-2.9) L 09/07/24 05:45 Baso % (Auto) 0.2 % (0.2-1.0) 09/07/24 05:45 Neut # (Auto) 13.7 x10^3/uL (2.2-4.8) H 09/07/24 05:45 Lymph # (Auto) 1.6 X10^3/uL (1.3-2.9) 09/07/24 05:45 [place] # (Auto) 1.0 x10^3/uL (0.3-0.8) H 09/07/24 05:45 Eos # (Auto) 0.1 x10^3/uL (0.0-0.2) 09/07/24 05:45 Baso # (Auto) 0.0 X10^3/uL (0.0-0.1) 09/07/24 05:45 Absolute Nucleated RBC 0.0 /100WBC 09/07/24 05:45 Sodium 140 mmol/L (136-145) 09/07/24 05:45 Corrected Sodium TNP 09/07/24 05:45 Potassium 3.0 mmol/L (3.5-5.1) L 09/07/24 05:45 Chloride 103 mmol/L (98-107) 09/07/24 05:45 Carbon Dioxide 27.0 mmol/L (21-32) 09/07/24 05:45 BUN 25 mg/dL (7-18) H 09/07/24 05:45 Creatinine 0.96 mg/dL (0.55-1.02) 09/07/24 05:45 Est GFR (MDRD) Af Amer > 60 (>60) 09/07/24 05:45 Est GFR (MDRD) Non-Af > 60 (>60) 09/07/24 05:45 Glucose 110 mg/dL (65-99) H 09/07/24 05:45 Calcium 8.3 mg/dL (8.5-10.1) L 09/07/24 05:45 Corrected Calcium 9.3 mg/dL (8.5-10.1) 09/07/24 05:45 Magnesium 1.8 mg/dL (2.0-2.9) L 09/07/24 05:45 Total Bilirubin 1.00 mg/dL (0.2-1.0) 09/07/24 05:45 AST 21 Units/L (15-37) 09/07/24 05:45 ALT 18 Units/L (12-78) 09/07/24 05:45 Alkaline Phosphatase 44 Units/L (46-116) L 09/07/24 05:45 Total Protein 6.3 g/dL (6.4-8.2) L 09/07/24 05:45 Albumin 2.7 g/dL (3.4-5.0) L 09/07/24 05:45 Globulin 3.6 g/dL (2.5-4.5) 09/07/24 05:45 Albumin/Globulin Ratio 0.8 Ratio (1.1-2.1) L 09/07/24 05:45 Review of Systems Constitutional: Weakness Eyes: No Symptoms Reported Respiratory: No Symptoms Reported Cardiovascular: No Symptoms Reported Gastrointestinal: No Symptoms Reported Genitourinary: No Symptoms Reported Musculoskeletal: Leg Pain Skin: Wound Neurological: No Symptoms Reported Physical Exam Vital Signs: Vital Signs Temperature 98.4 F Temperature 98.6 F Pulse Rate [Left Brachial] 88 Pulse Rate [Left Brachial] 89 Respiratory Rate 19 Respiratory Rate 18 Blood Pressure [Left Arm] 117/54 Blood Pressure [Left Arm] 103/49 O2 Sat by Pulse Oximetry 97 O2 Sat by Pulse Oximetry 91 Oriented: Normal Eyes: Normal Nose: Normal Throat: Normal Respiratory: Clear Throughout Cardiovascular: Normal Auscultation: Bowel Sounds: Normal Palpation: Normal Tenderness: Normal Skin: Red (RLE ), Tender and Wound (drainage noted ) Musculoskeletal: Right and Leg Psychiatric: Normal Mood Description: Calm Affect: Normal Speech Pattern: Clear and Appropriate Assessment/Plan (1) Cellulitis of leg, right: Status: Acute (2) Pain and swelling of lower leg: Qualifiers: Laterality: right Qualified Code(s): M79.661 - Pain in right lower leg; M79.89 - Other specified soft tissue disorders Status: Acute (3) Acute hypokalemia: Status: Acute (4) Hypertension: Qualifiers: Hypertension type: primary hypertension Qualified Code(s): I10 - Ess ential (primary) hypertension Status: Chronic (5) Left leg DVT: Qualifiers: Affected thrombotic vein of extremity: femoral Chronicity: acute Qualified Code(s): I82.412 - Acute embolism and thrombosis of left femoral vein Status: Chronic (6) PVD (peripheral vascular disease): Status: Chronic (7) Arterial insufficiency with ischemic ulcer: Status: Chronic Review H&P Reviewed: Yes Patient was examined?: Yes
[2024-09-07 13:51] LABS: CREATININE 0.92 mg/dL (0.55-1.02)
[2024-09-07 13:59] LABS: VANCOMYCIN,TROUGH 22.7 ug/mL (15-20)
[2024-09-07] MEDS: VANCOMYCIN IV *PREMIX 1.25 G/250 ML BAG 1.25 G/250 ML PIGGYBACK IV SCH (19:42)
[2024-09-07] MEDS: LOPRESSOR TAB 50 MG PO SCH (20:06)
[2024-09-07] MEDS: NORCO 5/325 MG TAB PO PRN (20:06)
[2024-09-07] MEDS: NEURONTIN CAP 100 MG PO SCH (20:06)
[2024-09-07] MEDS ORDERED: VANCOMYCIN IV *PREMIX 2 G/400 ML BAG 2 G/400 ML PIGGYBACK IV SCH (21:00)
[2024-09-08] MEDS ORDERED: NS 250 ML IV 25 ML IV PRN (08:53)
[2024-09-08] MEDS: NS 250 ML IV 250 ML IV ONE (09:25)
[2024-09-08] MEDS: ZOSYN VIAL 3.375 GRAMS 3.375 G in NS 100 ML IV 100 ML IV SCH (09:25)
[2024-09-08 09:50] LABS: BASOPHILS # (AUTO) 0.1 X10^3/uL (0.0-0.1); BASOPHILS % (AUTO) 0.5 % (0.2-1.0); EOSINOPHILS # (AUTO) 0.2 x10^3/uL (0.0-0.2); EOSINOPHILS % (AUTO) 1.6 % (0.9-2.9); HEMATOCRIT 33.6 % (36.0-47.0); HEMOGLOBIN 11.8 g/dL (12.0-16.0); LYMPHOCYTES # (AUTO) 1.9 X10^3/uL (1.3-2.9); LYMPHOCYTES % (AUTO) 18.1 % (21.0-51.0); MEAN CORPUSCULAR HEMOGLOBIN 30.2 pg (27.0-34.0); MEAN CORPUSCULAR HGB CONC 35.1 g/dL (33.0-35.0); MEAN CORPUSCULAR VOLUME 85.9 fL (80.0-100.0); MEAN PLATELET VOLUME 10.1 fL (7.4-11.0); MONOCYTES % (AUTO) 9.6 % (0.0-13.0); NEUTROPHILS # (AUTO) 7.5 x10^3/uL (2.2-4.8); NEUTROPHILS % (AUTO) 70.2 % (42.0-75.0); PLATELET COUNT 142 X10^3/uL (150.0-450.0); RED BLOOD COUNT 3.91 X10^6/uL (3.5-5.4); RED CELL DISTRIBUTION WIDTH 13.1 % (11.6-16.5); WHITE BLOOD COUNT 10.6 X10^3/uL (3.6-10.0)
[2024-09-08 10:14] LABS: ALANINE AMINOTRANSFERASE 21 Units/L (12-78); ALBUMIN 2.7 g/dL (3.4-5.0); ALKALINE PHOSPHATASE 45 Units/L (46-116); ASPARTATE AMINO TRANSFERASE 25 Units/L (15-37); BLOOD UREA NITROGEN 12 mg/dL (7-18); CALCIUM 8.2 mg/dL (8.5-10.1); CARBON DIOXIDE 26.1 mmol/L (21-32); CHLORIDE 102 mmol/L (98-107); COR CA(FOR HYPOALB) 9.2 mg/dL (8.5-10.1); COR NA(FOR HYPERGLY) 137 mmol/L (136-145); CREATININE 0.86 mg/dL (0.55-1.02); GLUCOSE 119 mg/dL (65-99); MAGNESIUM 1.9 mg/dL (2.0-2.9); POTASSIUM 3.2 mmol/L (3.5-5.1); SODIUM 137 mmol/L (136-145); TOTAL PROTEIN 6.7 g/dL (6.4-8.2); eGFR NON BLACK RACES > 60 (>60)
--- NOTE | 2024-09-08 10:43 | PCM.PROG ---
Progress Note Progress Note for Day of Date of Exam: 09/08/24 Subjective Subjective: Patient seen at bedside, no acute events overnight. She did have a fever of 101.3 and 100.5 this morning. She was treated with Tylenol. She is admitted for RLE ulcer and cellulitis. She remains on IV Vancomycin. Dr Saul has been consulted and recommended further imaging. Labs/imaging reviewed: -WBC 10.6 Hgb 11.9 K 3.2 BUN/Cr 12/0.86 Plan: continue IV Vancomycin, add Zosyn. Follow wound Cx. Follow surgery recommendations. Keep leg elevated, wound care and pain control. Continue home medications. Replace electrolytes as per protocol. Monitor AM labs/imaging. Past Medical Family Social History Allergies: Allergies sulfamethoxazole [From Bactrim] Allergy (Intermediate, Verified 09/06/24 23:23) RASH trimethoprim [From Bactrim] Allergy (Intermediate, Verified 09/06/24 23:23) RASH Vital Signs and I&O's Vital Signs: Vital Signs Temperature 100.5 F Temperature 100.2 F Pulse Rate [Left Brachial] 106 Pulse Rate [Left Brachial] 97 Respiratory Rate 20 Respiratory Rate 20 Blood Pressure [Left Arm] 132/60 Blood Pressure [Left Arm] 130/57 O2 Sat by Pulse Oximetry 97 O2 Sat by Pulse Oximetry 99 Intake and Output: Intake & Output 09/05/24 09/06/24 09/07/24 09/08/24 23:59 23:59 23:59 23:59 Intake Total 240 / 240 1991 697 / 697 Balance 240 / 240 1991 697 / 697 Physical Exam Oriented: Normal Eyes: Normal Nose: Normal Throat: Normal Respiratory: Normal Cardiovascular: Normal Auscultation: Bowel Sounds: Normal Palpation: Normal Tenderness: Normal Skin: Red (RLE erythema improving ), Tender and Wound (mostly dry ) Musculoskeletal: Right and Leg Psychiatric: Normal Mood Description: Calm Affect: Normal Speech Pattern: Clear and Appropriate Laboratory and Diagnostics 09/08/24 09:28 09/08/24 09:28 Labs: 09/06/24 23:48 Leg - Right Wound Gram Stain - Final Laboratory WBC 10.6 X10^3/uL (3.6-10.0) H 09/08/24 09:28 RBC 3.91 X10^6/uL (3.5-5.4) 09/08/24 09:28 Hgb 11.8 g/dL (12.0-16.0) L 09/08/24 09: Hct 33.6 % (36.0-47.0) L 09/08/24 09: MCV 85.9 fL (80.0-100.0) 09/08/24 09: MCH 30.2 pg (27.0-34.0) 09/08/24 09: MCHC 35.1 g/dL (33.0-35.0) H 09/08/24 09: RDW 13.1 % (11.6-16.5) 09/08/24 09: Plt Count 142 X10^3/uL (150.0-450.0) L 09/08/24 09: MPV 10.1 fL (7.4-11.0) 09/08/24 09: Neut % (Auto) 70.2 % (42.0-75.0) 09/08/24 09: Lymph % (Auto) 18.1 % (21.0-51.0) L 09/08/24 09:28 [place] % (Auto) 9.6 % (0.0-13.0) 09/08/24 09: Eos % (Auto) 1.6 % (0.9-2.9) 09/08/24 09: Baso % (Auto) 0.5 % (0.2-1.0) 09/08/24 09: Neut # (Auto) 7.5 x10^3/uL (2.2-4.8) H 09/08/24 09: Lymph # (Auto) 1.9 X10^3/uL (1.3-2.9) 09/08/24 09:28 [place] # (Auto) 1.0 x10^3/uL (0.3-0.8) H 09/08/24 09: Eos # (Auto) 0.2 x10^3/uL (0.0-0.2) 09/08/24 09: Baso # (Auto) 0.1 X10^3/uL (0.0-0.1) 09/08/24 09: Absolute Nucleated RBC 0.0 /100WBC 09/08/24 09:28 Sodium 137 mmol/L (136-145) 09/08/24 09:28 Corrected Sodium 137 mmol/L (136-145) 09/08/24 09:28 Potassium 3.2 mmol/L (3.5-5.1) L 09/08/24 09:28 Chloride 102 mmol/L (98-107) 09/08/24 09:28 Carbon Dioxide 26.1 mmol/L (21-32) 09/08/24 09:28 BUN 12 mg/dL (7-18) 09/08/24 09:28 Creatinine 0.86 mg/dL (0.55-1.02) 09/08/24 09:28 Est GFR (MDRD) Af Amer > 60 (>60) 09/08/24 09:28 Est GFR (MDRD) Non-Af > 60 (>60) 09/08/24 09:28 Glucose 119 mg/dL (65-99) H 09/08/24 09:28 Calcium 8.2 mg/dL (8.5-10.1) L 09/08/24 09:28 Corrected Calcium 9.2 mg/dL (8.5-10.1) 09/08/24 09:28 Magnesium 1.9 mg/dL (2.0-2.9) L 09/08/24 09:28 Total Bilirubin 1.00 mg/dL (0.2-1.0) 09/08/24 09:28 AST 25 Units/L (15-37) 09/08/24 09:28 ALT 21 Units/L (12-78) 09/08/24 09:28 Alkaline Phosphatase 45 Units/L (46-116) L 09/08/24 09:28 Total Protein 6.7 g/dL (6.4-8.2) 09/08/24 09:28 Albumin 2.7 g/dL (3.4-5.0) L 09/08/24 09:28 Globulin 4.0 g/dL (2.5-4.5) 09/08/24 09:28 Albumin/Globulin Ratio 0.7 Ratio (1.1-2.1) L 09/08/24 09:28 Vancomycin Trough Cancelled 09/08/24 09:28 Plan (1) Cellulitis of leg, right: Status: Acute (2) Pain and swelling of lower leg: Status: Acute Qualifiers: Laterality: right Qualified Code(s): M79.661 - Pain in right lower leg; M79.89 - Other specified soft tissue disorders (3) Acute hypokalemia: Status: Acute (4) Hypertension: Status: Chronic Qualifiers: Hypertension type: primary hypertension Qualified Code(s): I10 - Essential (primary) hypertension (5) Left leg DVT: Status: Chronic Qualifiers: Affected thrombotic vein of extremity: femoral Chronicity: acute Q ualified Code(s): I82.412 - Acute embolism and thrombosis of left femoral vein (6) PVD (peripheral vascular disease): Status: Chronic (7) Arterial insufficiency with ischemic ulcer: Status: Chronic
[2024-09-08] MEDS ORDERED: CONSULT PHARMACY - POTASSIUM & MAGNESIUM XX SCH (11:00)
--- NOTE | 2024-09-08 11:16 | DR.CONSULT ---
CONSULT Consultation for Day of: Date: 09/08/24 Chief Complaint Chief Complaint: non- healing ulcer right medial ankle Allergies Allergies Allergy/AdvReac Type Severity Reaction Status Date / Time sulfamethoxazole Allergy Intermediate RASH Verified 09/06/24 23:23 [From Bactrim] trimethoprim [From Bactrim] Allergy Intermediate RASH Verified 09/06/24 23:23 History of Present Illness History of Present Illness: 64 year old female morbidly obese with past history of DVT and hypertension who has had bilateral iliac vein stenting by her history. She had Venous stasis ulcer of the right leg which healed. now has a recurrent Venous stasis ulcer to the right medial ankle . Status of the iliac vein stents is unkown. Past Medical History Past Medical History: Arthritis and Hypertension Additional Medical History: CHRONIC BACK PAIN , hx of xeep vein thrombosis of the right leg in the past . She is not diabetic Past Surgical History Surgical History: FORESTRY WORKER Surgery Family History Family Medical History: Hypertension Social History Does patient currently use any type of tobacco product: No Type of Tobacco Use: None Alcohol Use: None Drug Use: None Medications Home Medications: sulfamethoxazole [From Bactrim] Allergy (Intermediate, Verified 09/06/24 23:23) RASH trimethoprim [From Bactrim] Allergy (Intermediate, Verified 09/06/24 23:23) RASH CONTINUE taking the following medications metoprolol tartrate 50 mg tablet 50 mg PO HS 09/06/24 [History] oxybutynin chloride 15 mg tablet,extended release 24 hr 15 mg PO QDAY 09/06/24 [History] vibegron 75 mg tablet (Gemtesa) 75 mg PO QDAY 09/06/24 [History] Review of Systems Constitutional: See HPI Eyes: No Symptoms Reported ENT: No Symptoms Reported Respiratory: No Symptoms Reported Cardiovascular: No Symptoms Reported Gastrointestinal: No Symptoms Reported Genitourinary: No Symptoms Reported Musculoskeletal: No Symptoms Reported Skin: See HPI Neurological: No Symptoms Reported Physical Exam Vital Signs: Vital Signs Temperature 100.5 F Temperature 100.2 F Pulse Rate [Left Brachial] 106 Pulse Rate [Left Brachial] 97 Respiratory Rate 20 Respiratory Rate 20 Blood Pressure [Left Arm] 132/60 Blood Pressure [Left Arm] 130/57 O2 Sat by Pulse Oximetry 97 O2 Sat by Pulse Oximetry 99 Oriented: Normal, Time, Person, Place and Other (morbidly obese ) Eyes: Normal Ear: Normal Nose: Normal Throat: Normal Respiratory: Clear Throughout Cardiovascular: Normal and Other (all pulses are intact ) : Normal Auscultation: Bowel Sounds: Normal Palpation: Normal Tenderness: Normal Skin: Wound (3x2 x 0.2 cm wound right medial ankle with small amount of drainage ) Musculoskeletal: Normal Psychiatric: Normal Mood Description: Calm Affect: Normal Speech Pattern: Clear and Appropriate Plan (1) Cellulitis of leg, right: Status: Acute Narrative Support Text: continue IV antibiotics (2) Pain and swelling of lower leg: Status: Acute Qualifiers: Laterality: right Qualified Code(s): M79.661 - Pain in right lower leg; M79.89 - Other specified soft tissue disorders Plan: Had US of venous structures showing no DVT . Will plan venogram and IVUS of right leg/ iliac vein and stent and see if it has failed and needs revision to help with right leg venous statsis ulcer healing . (3) Acute hypokalemia: Status: Acute (4) Hypertension: Status: Chronic Qualifiers: Hypertension type: primary hypertension Qualified Code(s): I10 - Essential (primary) hypertension (5) Left leg DVT: Status: Chronic Qualifiers: Affected thrombotic vein of extremity: femoral Chronicity: acute Qualified Code(s): I82.412 - Acute embolism and thrombosis of left femoral vein (6) PVD (peripheral vascular disease): Status: Chronic (7) Arterial insufficiency with ischemic ulcer: Status: Chronic
[2024-09-08] MEDS: LOPRESSOR TAB 50 MG PO SCH (11:32)
[2024-09-08] MEDS: MAG-OX TAB PO SCH (11:33)
[2024-09-08] MEDS: K-DUR TAB 20 MEQ PO SCH (11:34)
[2024-09-08] MEDS: WOUND CARE XX SCH (14:20)
[2024-09-08] MEDS: SANTYL EXT SCH (14:20)
--- NOTE | 2024-09-08 23:02 | NOTE.SOAP ---
Soap Note Note for Day of Date of Exam: 09/08/24 Subjective Data Subjective Data: Recurrent right ankle venous stasis ulcer, hx of right iliac vein stenting Objective Data Temperature: 100.2 F Pulse Rate: 89 Respiratory Rate: 19 Blood Pressure: 123/57 O2 Sat by Pulse Oximetry: 94 Objective Data: 3+ pitting edema right leg , with chronic skin changes consistent with venous insufficiency and venous stasis ulcer. Assessment Assessment: recurrent venous stasis ulcer right ankle , hx of right ilaic vein stenting with healing Plan Plan: Venoram, IVUS right iliac vein and stent , possible balloon angioplasty of existing right iliac stetn , possible new right iliac stent placement.
[2024-09-09] MEDS: NOZIN NASAL SANITIZER TP ONE (05:31)
[2024-09-09 06:16] LABS: BASOPHILS # (AUTO) 0.1 X10^3/uL (0.0-0.1); BASOPHILS % (AUTO) 0.8 % (0.2-1.0); EOSINOPHILS # (AUTO) 0.4 x10^3/uL (0.0-0.2); HEMATOCRIT 34.8 % (36.0-47.0); HEMOGLOBIN 12.2 g/dL (12.0-16.0); LYMPHOCYTES # (AUTO) 1.9 X10^3/uL (1.3-2.9); LYMPHOCYTES % (AUTO) 20.7 % (21.0-51.0); MEAN CORPUSCULAR HEMOGLOBIN 30.2 pg (27.0-34.0); MEAN CORPUSCULAR VOLUME 86.4 fL (80.0-100.0); MEAN PLATELET VOLUME 10.1 fL (7.4-11.0); MONOCYTES % (AUTO) 10.7 % (0.0-13.0); NEUTROPHILS % (AUTO) 63.8 % (42.0-75.0); PLATELET COUNT 142 X10^3/uL (150.0-450.0); RED BLOOD COUNT 4.03 X10^6/uL (3.5-5.4); RED CELL DISTRIBUTION WIDTH 13.3 % (11.6-16.5); WHITE BLOOD COUNT 9.3 X10^3/uL (3.6-10.0)
[2024-09-09 06:40] LABS: ALANINE AMINOTRANSFERASE 25 Units/L (12-78); ALBUMIN 2.6 g/dL (3.4-5.0); ALKALINE PHOSPHATASE 45 Units/L (46-116); ASPARTATE AMINO TRANSFERASE 35 Units/L (15-37); BLOOD UREA NITROGEN 11 mg/dL (7-18); CALCIUM 8.4 mg/dL (8.5-10.1); CARBON DIOXIDE 26.8 mmol/L (21-32); CHLORIDE 105 mmol/L (98-107); COR CA(FOR HYPOALB) 9.5 mg/dL (8.5-10.1); GLUCOSE 92 mg/dL (65-99); MAGNESIUM 2.1 mg/dL (2.0-2.9); POTASSIUM 3.4 mmol/L (3.5-5.1); SODIUM 140 mmol/L (136-145); TOTAL PROTEIN 6.9 g/dL (6.4-8.2); eGFR NON BLACK RACES > 60 (>60)
[2024-09-09] MEDS: HIBICLENS WASH ONE (07:12)
[2024-09-09] MEDS ORDERED: CONSULT PHARMACY - POTASSIUM & MAGNESIUM XX SCH (08:00)
[2024-09-09] MEDS: LR 1,000 ML IV 1,000 ML IV ONE (08:08)
--- NOTE | 2024-09-09 08:38 | RAD ---
EXAMINATION:CHEST, 1 VIEWHISTORY:PRE OP VASCULAR PROCEDURE; .COMPARISON STUDY:09/30/2019TECHNIQUE:One viewFINDINGS:Poor inspiration. Underpenetrated film. Heart size is borderline. No acute infiltrates. No pneumothorax. Hilar and mediastinal structures and bony structures are unremarkable. Mild central vascular congestion.IMPRESSION:No acute infiltratesTHIS IS AN ELECTRONICALLY VERIFIED FINAL REPORT09/09/2024 8:35 AM - Electronically signed by Connor Frazier MD
--- NOTE | 2024-09-09 08:50 | EKG ---
Test Reason : pt. in pacu Blood Pressure : */* mmHG Vent. Rate : 85 BPM Atrial Rate : 85 BPM P-R Int : 142 ms QRS Dur : 78 ms QT Int : 378 ms P-R-T Axes : 48 47 12 degrees QTc Int : 449 ms Normal sinus rhythm Normal ECG No previous ECGs available Confirmed by Jamal Mo MD ([id number]) on 09/09/2024 12:47:44 PM Referred By: Confirmed By: Jamal Mo MD
[2024-09-09] MEDS: NS 100 ML IV 100 ML ONE (09:13)
[2024-09-09] MEDS: ANCEF VIAL 1 GRAM ONE (09:13)
[2024-09-09] MEDS ORDERED: PRECEDEX INJ VIAL ONE (09:18)
[2024-09-09] MEDS ORDERED: KETAMINE HCL ONE (09:18)
[2024-09-09] MEDS: LR IV PRN (09:18)
[2024-09-09] MEDS: ANCEF VIAL 1 GRAM IV PRN (09:22)
[2024-09-09] MEDS: ZOFRAN INJ 4 MG VIAL IVP PRN (09:25)
[2024-09-09] MEDS: REGLAN INJ 10 MG VIAL IVP PRN (09:25)
[2024-09-09] MEDS: DIPRIVAN IVP PRN (09:25)
[2024-09-09] MEDS: PEPCID 20 MG VIAL IVP PRN (09:25)
[2024-09-09] MEDS: KETAMINE HCL IV PRN (09:25)
[2024-09-09] MEDS: PRECEDEX INJ VIAL IVP PRN (09:25)
[2024-09-09] MEDS: ROBINUL IVP PRN (09:26)
[2024-09-09] MEDS: FENTANYL VIAL INJ 100 mcg IVP PRN (09:26)
[2024-09-09] MEDS: VERSED IVP PRN (09:40)
[2024-09-09] MEDS: HEPARIN SODIUM IN D5W 75,000 UNITS/1,500 ML BAG ONE (09:43)
[2024-09-09] MEDS: VISIPAQUE 50 ML ONE (09:43)
[2024-09-09] MEDS: MARCAINE 0.5% ONE (09:43)
[2024-09-09] MEDS: HEPARIN SODIUM INJ 5000 UNITS IVP PRN (09:56)
[2024-09-09] MEDS: FENTANYL VIAL INJ 100 mcg ONE (10:27)
[2024-09-09] MEDS: VERSED ONE (10:28)
[2024-09-09] MEDS: DIPRIVAN VIAL 20 ML ONE ×2 (10:28→10:56)
[2024-09-09] MEDS: HEPARIN SODIUM INJ 5000 UNITS ONE (10:30)
--- NOTE | 2024-09-09 10:48 | OR.IMMED ---
IMMEDIATE POST-OP NOTE Immediate Post-Op Note Date of surgery/procedure: 09/09/24 Pre-Op Diagnosis: History of ight iliac vein stenting ,current right ankle Venous stasis ulcer probable occluded or severely compromised right iliac vein stent Post-Op Diagnosis: 75% stenosis of the right external iliac vein stent Procedure: right iliac venogram , intravascular ultrasound right leg vein and stent, balloon dilatation of iliac vein and stent Description of Procedure: dictated Surgeon/Veneer Slicing Machine Operator: Kg Findings: 72% stenosis right iliac vein stent Estimated Blood Loss: 100 cc Complications: none Progress Notes: to floor, meli diet, continue Eliquis
[2024-09-09] MEDS: PEPCID 20 MG VIAL ONE (10:54)
[2024-09-09] MEDS: REGLAN INJ 10 MG VIAL ONE (10:55)
[2024-09-09] MEDS: ZOFRAN INJ 4 MG VIAL ONE (10:56)
--- NOTE | 2024-09-09 11:08 | PCM.PROG ---
Progress Note Progress Note for Day of Date of Exam: 09/09/24 Subjective Subjective: Patient resting in bed. No acute events overnight. She is admitted for RLE ulcer and cellulitis. She remains on IV Vancomycin. Dr Saul has been consulted and recommended further imaging. Labs/imaging reviewed: -WBC 9.3, hemoglobin 12.2, platelets 142, sodium 140, potassium 3.4, creatinine 0.8, glucose 92, -wound cultures pending Plan: continue IV Vancomycin, add Zosyn. Follow wound Cx. Follow surgery recommendations. Plan for Venoram, IVUS right iliac vein and stent, possible balloon angioplasty of existing right iliac stent, possible new right iliac stent placement this morning. Pt is NPO. Keep leg elevated, wound care and pain control. Continue home medications. Replace electrolytes as per protocol. Monitor AM labs/imaging. Past Medical Family Social History Allergies: Allergies sulfamethoxazole [From Bactrim] Allergy (Intermediate, Verified 09/06/24 23:23) RASH trimethoprim [From Bactrim] Allergy (Intermediate, Verified 09/06/24 23:23) RASH Review of Systems ROS changes noted: see HPI Vital Signs and I&O's Vital Signs: Vital Signs Temperature 98.4 F Temperature 97.2 F Pulse Rate [Left Brachial] 80 Pulse Rate [Left Brachial] 81 Pulse Rate 84 Respiratory Rate 16 Respiratory Rate 18 Respiratory Rate 20 Blood Pressure [Left Arm] 151/67 Blood Pressure [Left Arm] 148/67 Blood Pressure 160/68 O2 Sat by Pulse Oximetry 91 O2 Sat by Pulse Oximetry 97 O2 Sat by Pulse Oximetry 96 Intake and Output: Intake & Output 09/06/24 09/07/24 09/08/24 09/09/24 23:59 23:59 23:59 23:59 Intake Total 240 / 240 1991 1565 / 1565 2625 / 2625 Output Total 2100 / 2100 Balance 240 / 240 1991 1565 / 1565 525 / 525 Physical Exam Oriented: Normal, Time, Person, Place and Other (morbidly obese ) Eyes: Normal Ear: Normal Nose: Normal Throat: Normal Respiratory: Normal Cardiovascular: Normal and Other (all pulses are intact ) : Normal Auscultation: Bowel Sounds: Normal Tenderness: Normal Skin: Wound (3x2 x 0.2 cm wound right medial ankle with small amount of drainage ) Musculoskeletal: Normal Psychiatric: Normal Mood Description: Calm Affect: Normal Speech Pattern: Clear and Appropriate Laboratory and Diagnostics 09/09/24 05:32 09/09/24 05:32 Labs: 09/06/24 23:48 Leg - Right Wound Gram Stain - Final Laboratory WBC 9.3 X10^3/uL (3.6-10.0) 09/09/24 05:32 RBC 4.03 X10^6/uL (3.5-5.4) 09/09/24 05:32 Hgb 12.2 g/dL (12.0-16.0) 09/09/24 05:32 Hct 34.8 % (36.0-47.0) L 09/09/24 05:32 MCV 86.4 fL (80.0-100.0) 09/09/24 05:32 MCH 30.2 pg (27.0-34.0) 09/09/24 05:32 MCHC 35.0 g/dL (33.0-35.0) 09/09/24 05:32 RDW 13.3 % (11.6-16.5) 09/09/24 05:32 Plt Count 142 X10^3/uL (150.0-450.0) L 09/09/24 05:32 MPV 10.1 fL (7.4-11.0) 09/09/24 05:32 Neut % (Auto) 63.8 % (42.0-75.0) 09/09/24 05:32 Lymph % (Auto) 20.7 % (21.0-51.0) L 09/09/24 05:32 [place] % (Auto) 10.7 % (0.0-13.0) 09/09/24 05:32 Eos % (Auto) 4.0 % (0.9-2.9) H 09/09/24 05:32 Baso % (Auto) 0.8 % (0.2-1.0) 09/09/24 05:32 Neut # (Auto) 6.0 x10^3/uL (2.2-4.8) H 09/09/24 05:32 Lymph # (Auto) 1.9 X10^3/uL (1.3-2.9) 09/09/24 05:32 [place] # (Auto) 1.0 x10^3/uL (0.3-0.8) H 09/09/24 05:32 Eos # (Auto) 0.4 x10^3/uL (0.0-0.2) H 09/09/24 05:32 Baso # (Auto) 0.1 X10^3/uL (0.0-0.1) 09/09/24 05:32 Absolute Nucleated RBC 0.1 /100WBC 09/09/24 05:32 Sodium 140 mmol/L (136-145) 09/09/24 05:32 Corrected Sodium TNP 09/09/24 05:32 Potassium 3.4 mmol/L (3.5-5.1) L 09/09/24 05:32 Chloride 105 mmol/L (98-107) 09/09/24 05:32 Carbon Dioxide 26.8 mmol/L (21-32) 09/09/24 05:32 BUN 11 mg/dL (7-18) 09/09/24 05:32 Creatinine 0.80 mg/dL (0.55-1.02) 09/09/24 05:32 Est GFR (MDRD) Af Amer > 60 (>60) 09/09/24 05:32 Est GFR (MDRD) Non-Af > 60 (>60) 09/09/24 05:32 Glucose 92 mg/dL (65-99) 09/09/24 05:32 POC Glucose (mg/dL) 96 mg/dL (65-99) 09/09/24 05:21 Calcium 8.4 mg/dL (8.5-10.1) L 09/09/24 05:32 Corrected Calcium 9.5 mg/dL (8.5-10.1) 09/09/24 05:32 Magnesium 2.1 mg/dL (2.0-2.9) 09/09/24 05:32 Total Bilirubin 1.10 mg/dL (0.2-1.0) H 09/09/24 05:32 AST 35 Units/L (15-37) 09/09/24 05:32 ALT 25 Units/L (12-78) 09/09/24 05:32 Alkaline Phosphatase 45 Units/L (46-116) L 09/09/24 05:32 Total Protein 6.9 g/dL (6.4-8.2) 09/09/24 05:32 Albumin 2.6 g/dL (3.4-5.0) L 09/09/24 05:32 Globulin 4.3 g/dL (2.5-4.5) 09/09/24 05:32 Albumin/Globulin Ratio 0.6 Ratio (1.1-2.1) L 09/09/24 05:32 Vancomycin Trough Cancelled 09/08/24 09:28 Plan (1) Cellulitis of leg, right: Status: Acute (2) Pain and swelling of lower leg: Status: Acute Qualifiers: Laterality: right Qualified Code(s): M79.661 - Pain in right lower leg; M79.89 - Other specified soft tissue disorders (3) Acute hypokalemia: Status: Acute (4) Hypertension: Status: Chronic Qualifiers: Hypertension type: primary hypertension Qualified Code(s): I10 - Essential (primary) hypertension (5) Left leg DVT: Status: Chronic Qualifiers: Affected thrombotic vein of extremity: femoral Chronicity: acute Qualified Code(s): I82.412 - Acute embolism and thrombosis of left femoral vein (6) PVD (peripheral vascular disease): Status: Chronic (7) Arterial insufficiency with ischemic ulcer: Status: Chronic
[2024-09-09] MEDS: PHARMACY COMMENT IV SCH (20:45)
[2024-09-09 21:02] LABS: CREATININE 0.78 mg/dL (0.55-1.02); VANCOMYCIN,TROUGH 16.7 ug/mL (15-20)
[2024-09-09] MEDS: K-DUR TAB 20 MEQ PO SCH (21:27)
[2024-09-10] MEDS: HIBICLENS WASH EXT ONE (05:39)
[2024-09-10 06:19] LABS: BASOPHILS # (AUTO) 0.1 X10^3/uL (0.0-0.1); BASOPHILS % (AUTO) 1.1 % (0.2-1.0); EOSINOPHILS # (AUTO) 0.4 x10^3/uL (0.0-0.2); EOSINOPHILS % (AUTO) 5.5 % (0.9-2.9); HEMATOCRIT 31.3 % (36.0-47.0); LYMPHOCYTES # (AUTO) 1.5 X10^3/uL (1.3-2.9); LYMPHOCYTES % (AUTO) 22.5 % (21.0-51.0); MEAN CORPUSCULAR HEMOGLOBIN 30.3 pg (27.0-34.0); MEAN CORPUSCULAR HGB CONC 35.1 g/dL (33.0-35.0); MEAN CORPUSCULAR VOLUME 86.4 fL (80.0-100.0); MEAN PLATELET VOLUME 10.2 fL (7.4-11.0); MONOCYTES # (AUTO) 0.7 x10^3/uL (0.3-0.8); MONOCYTES % (AUTO) 11.2 % (0.0-13.0); NEUTROPHILS # (AUTO) 3.9 x10^3/uL (2.2-4.8); NEUTROPHILS % (AUTO) 59.7 % (42.0-75.0); PLATELET COUNT 145 X10^3/uL (150.0-450.0); RED BLOOD COUNT 3.62 X10^6/uL (3.5-5.4); RED CELL DISTRIBUTION WIDTH 13.3 % (11.6-16.5); WHITE BLOOD COUNT 6.6 X10^3/uL (3.6-10.0)
[2024-09-10 06:47] LABS: ALANINE AMINOTRANSFERASE 30 Units/L (12-78); ALBUMIN 2.3 g/dL (3.4-5.0); ALKALINE PHOSPHATASE 42 Units/L (46-116); ASPARTATE AMINO TRANSFERASE 50 Units/L (15-37); BLOOD UREA NITROGEN 9 mg/dL (7-18); CARBON DIOXIDE 24.3 mmol/L (21-32); CHLORIDE 105 mmol/L (98-107); COR CA(FOR HYPOALB) 9.4 mg/dL (8.5-10.1); GLUCOSE 95 mg/dL (65-99); SODIUM 138 mmol/L (136-145); TOTAL PROTEIN 6.5 g/dL (6.4-8.2); eGFR NON BLACK RACES > 60 (>60)
[2024-09-10] MEDS: PHARMACY COMMENT IV NR (06:57)
[2024-09-10 08:18] VITALS: BP 131/60; PULSE 84; RESP 19; TEMP 97.1; O2SAT 95
--- NOTE | 2024-09-10 09:53 | W.DIS.FURT ---
Summary of Discharge Discharge Summary of Date Date of Exam: 09/10/24 Admission Date Date of Admission: 09/06/24 Admission Diagnosis Patient Problems (Updated 09/07/24 @ 10:09 by Yelena Arellano MD) Cellulitis of leg, right (Acute) L03.115 Pain and swelling of lower leg (Acute) M79.669, M79.89 Hospital Course: Patient is admitted for RLE ulcer and cellulitis. Her hospital/treatment course included: antibiotics IV Vancomycin and Zosyn. Vascular surgery-Dr Saul was consulted and performed right balloon dilatation of iliac vein and stent yesterday due to stenosis of previous stent. Patient did well post op. Her wound culture resulted in E coli, ESBL. PICC line placed. Patient will receive IV invanz to complete course. She was discharged in stable condition. Instructed to follow up with pcp and vascular surgery in 1 week. Vital Signs: Vital Signs (72 hours) 09/08/24 23:01 09/07/24 11:30 09/07/24 16:00 Temperature 100.2 F H 100 F H 98.5 F Pulse Rate 89 Pulse Rate [Left Brachial] 100 H 100 H Respiratory Rate 19 19 18 Blood Pressure 123/57 Blood Pressure [Left Arm] 112/56 130/59 O2 Sat by Pulse Oximetry 94 L 95 97 Oxygen Delivery Method Room Air Room Air 09/07/24 19:47 09/07/24 19:00 09/07/24 20:06 Temperature 100.9 F H Pulse Rate Pulse Rate [Left Brachial] 107 H Respiratory Rate 20 20 Blood Pressure Blood Pressure [Left Arm] 139/60 O2 Sat by Pulse Oximetry 99 Oxygen Delivery Method Room Air Room Air 09/07/24 21:06 09/07/24 23:52 09/08/24 04:00 Temperature 100 F H 100.2 F H Pulse Rate Pulse Rate [Left Brachial] 93 H 97 H Respiratory Rate 18 19 20 Blood Pressure Blood Pressure [Left Arm] 127/60 130/57 O2 Sat by Pulse Oximetry 97 99 Oxygen Delivery Method Room Air Room Air 09/08/24 07:53 09/08/24 07:00 09/08/24 11:55 Temperature 100.5 F H 98.1 F Pulse Rate Pulse Rate [Left Brachial] 106 H 101 H Respiratory Rate 20 19 Blood Pressure Blood Pressure [Left Arm] 132/60 126/60 O2 Sat by Pulse Oximetry 97 95 Oxygen Delivery Method Room Air Room Air Room Air 09/08/24 15:59 09/08/24 19:00 09/08/24 20:00 Temperature 100.2 F H 100.6 F H Pulse Rate Pulse Rate [Left Brachial] 89 91 H Respiratory Rate 19 21 Blood Pressure Blood Pressure [Left Arm] 123/57 147/65 O2 Sat by Pulse Oximetry 94 L 96 Oxygen Delivery Method Room Air Room Air Room Air 09/08/24 20:31 09/09/24 00:00 09/08/24 21:31 Temperature 97.9 F Pulse Rate Pulse Rate [Left Brachial] 76 Respiratory Rate 20 20 20 Blood Pressure Blood Pressure [Left Arm] 141/69 O2 Sat by Pulse Oximetry 96 Oxygen Delivery Method Room Air 09/09/24 04:00 09/09/24 08:18 09/09/24 08:00 Temperature 97.2 F L 98.4 F Pulse Rate 84 Pulse Rate [Left Brachial] 81 80 Respiratory Rate 20 16 18 Blood Pressure 160/68 Blood Pressure [Left Arm] 148/67 151/67 O2 Sat by Pulse Oximetry 96 91 L 97 Oxygen Delivery Method Room Air Room Air Room Air 09/09/24 11:10 09/09/24 11:13 09/09/24 10:35 Temperature 97.3 F L Pulse Rate Pulse Rate [Left Brachial] 83 Respiratory Rate 16 23 Blood Pressure Blood Pressure [Left Arm] 125/58 O2 Sat by Pulse Oximetry 95 Oxygen Delivery Method Room Air 09/09/24 10:50 09/09/24 11:56 09/09/24 11:05 Temperature 97.3 F L 97.5 F L 97.5 F L Pulse Rate Pulse Rate [Left Brachial] 84 74 84 Respiratory Rate 20 20 20 Blood Pressure Blood Pressure [Left Arm] 157/72 124/58 156/66 O2 Sat by Pulse Oximetry 93 L 95 94 L Oxygen Delivery Method Room Air 09/09/24 11:20 09/09/24 11:35 09/09/24 12:35 Temperature 97.5 F L 97.5 F L 97.5 F L Pulse Rate Pulse Rate [Left Brachial] 87 80 74 Respiratory Rate 20 20 20 Blood Pressure Blood Pressure [Left Arm] 170/72 150/67 124/58 O2 Sat by Pulse Oximetry 96 96 95 Oxygen Delivery Method 09/09/24 12:10 09/09/24 13:35 09/09/24 14:35 Temperature 97.7 F 97.7 F Pulse Rate Pulse Rate [Left Brachial] 70 72 Respiratory Rate 20 20 20 Blood Pressure Blood Pressure [Left Arm] 116/57 124/56 O2 Sat by Pulse Oximetry 99 98 Oxygen Delivery Method 09/09/24 15:31 09/09/24 15:33 09/09/24 19:00 Temperature 97.2 F L 97.2 F L Pulse Rate Pulse Rate [Left Brachial] 72 72 Respiratory Rate 18 18 Blood Pressure Blood Pressure [Left Arm] 123/58 123/58 O2 Sat by Pulse Oximetry 92 L 92 L Oxygen Delivery Method Room Air Room Air 09/09/24 20:00 09/10/24 00:00 09/10/24 04:00 Temperature 98.9 F 98.9 F 99.0 F Pulse Rate Pulse Rate [Left Brachial] 74 73 85 Respiratory Rate 16 16 16 Blood Pressure Blood Pressure [Left Arm] 132/61 136/63 138/65 O2 Sat by Pulse Oximetry 93 L 97 97 Oxygen Delivery Method Room Air Room Air Room Air 09/10/24 07:00 09/10/24 08:00 Temperature 97.1 F L Pulse Rate Pulse Rate [Left Brachial] 84 Respiratory Rate 19 Blood Pressure Blood Pressure [Left Arm] 131/60 O2 Sat by Pulse Oximetry 95 Oxygen Delivery Method Room Air Room Air Labs: Laboratory Last Values WBC 6.6 X10^3/uL (3.6-10.0) 09/10/24 05:40 RBC 3.62 X10^6/uL (3.5-5.4) 09/10/24 05:40 Hgb 11.0 g/dL (12.0-16.0) L 09/10/24 05:40 Hct 31.3 % (36.0-47.0) L 09/10/24 05:40 MCV 86.4 fL (80.0-100.0) 09/10/24 05:40 MCH 30.3 pg (27.0-34.0) 09/10/24 05:40 MCHC 35.1 g/dL (33.0-35.0) H 09/10/24 05:40 RDW 13.3 % (11.6-16.5) 09/10/24 05:40 Plt Count 145 X10^3/uL (150.0-450.0) L 09/10/24 05:40 MPV 10.2 fL (7.4-11.0) 09/10/24 05:40 Neut % (Auto) 59.7 % (42.0-75.0) 09/10/24 05:40 Lymph % (Auto) 22.5 % (21.0-51.0) 09/10/24 05:40 [place] % (Auto) 11.2 % (0.0-13.0) 09/10/24 05:40 Eos % (Auto) 5.5 % (0.9-2.9) H 09/10/24 05:40 Baso % (Auto) 1.1 % (0.2-1.0) H 09/10/24 05:40 Neut # (Auto) 3.9 x10^3/uL (2.2-4.8) 09/10/24 05:40 Lymph # (Auto) 1.5 X10^3/uL (1.3-2.9) 09/10/24 05:40 [place] # (Auto) 0.7 x10^3/uL (0.3-0.8) 09/10/24 05:40 Eos # (Auto) 0.4 x10^3/uL (0.0-0.2) H 09/10/24 05:40 Baso # (Auto) 0.1 X10^3/uL (0.0-0.1) 09/10/24 05:40 Absolute Nucleated RBC 0.5 /100WBC 09/10/24 05:40 Sodium 138 mmol/L (136-145) 09/10/24 05:40 Corrected Sodium TNP 09/10/24 05:40 Potassium 5.0 mmol/L (3.5-5.1) 09/10/24 05:40 Chloride 105 mmol/L (98-107) 09/10/24 05:40 Carbon Dioxide 24.3 mmol/L (21-32) 09/10/24 05:40 BUN 9 mg/dL (7-18) 09/10/24 05:40 Creatinine 0.80 mg/dL (0.55-1.02) 09/10/24 05:40 Est GFR (MDRD) Af Amer > 60 (>60) 09/10/24 05:40 Est GFR (MDRD) Non-Af > 60 (>60) 09/10/24 05:40 Glucose 95 mg/dL (65-99) 09/10/24 05:40 POC Glucose (mg/dL) 111 mg/dL (65-99) H 09/09/24 19:52 Calcium 8.0 mg/dL (8.5-10.1) L 09/10/24 05:40 Corrected Calcium 9.4 mg/dL (8.5-10.1) 09/10/24 05:40 Magnesium 2.1 mg/dL (2.0-2.9) 09/09/24 05:32 Total Bilirubin 0.90 mg/dL (0.2-1.0) 09/10/24 05:40 AST 50 Units/L (15-37) H 09/10/24 05:40 ALT 30 Units/L (12-78) 09/10/24 05:40 Alkaline Phosphatase 42 Units/L (46-116) L 09/10/24 05:40 Total Protein 6.5 g/dL (6.4-8.2) 09/10/24 05:40 Albumin 2.3 g/dL (3.4-5.0) L 09/10/24 05:40 Globulin 4.2 g/dL (2.5-4.5) 09/10/24 05:40 Albumin/Globulin Ratio 0.5 Ratio (1.1-2.1) L 09/10/24 05:40 Vancomycin Trough 16.7 ug/mL (15-20) 09/09/24 20:42 Reason For Visit: CELLULITIS RIGHT LEG, PAIN AND SWELLING LOWER Discharge Date Discharge Date: 09/10/24 Discharge Diagnosis All Active Problems (Updated 09/07/24 @ 10:09 by Yelena Arellano MD) Arterial insufficiency with ischemic ulcer (Chronic) PVD (peripheral vascular disease) (Chronic) Cellulitis of leg, right (Acute) Pain and swelling of lower leg (Acute) Diverticulosis of sigmoid colon (Acute) Rectal bleed (Acute) Colon polyps (Acute) DVT (deep venous thrombosis) (Acute) Acute hypokalemia (Acute) Hypertension (Chronic) Left leg DVT (Chronic) Shortness of breath (Acute) COVID-19 (Acute) Plan of Treatment: Continue with present treatment and follow up plan. Pt is to keep follow up appointment as instructed and take medications as ordered. Discharge Medications Discharge Medications: sulfamethoxazole [From Bactrim] Allergy (Intermediate, Verified 09/06/24 23:23) RASH trimethoprim [From Bactrim] Allergy (Intermediate, Verified 09/06/24 23:23) RASH CONTINUE taking the following medications metoprolol tartrate 50 mg tablet 50 mg PO HS 09/06/24 [History] oxybutynin chloride 15 mg tablet,extended release 24 hr 15 mg PO QDAY 09/06/24 [History] vibegron 75 mg tablet (Gemtesa) 75 mg PO QDAY 09/06/24 [History] New Prescriptions ertapenem 1 gram solution for injection 1 g IV Q24H #10 ea 09/10/24 [Rx] Discharge Plan Discharge Plan Hospital Course: Patient is admitted for RLE ulcer and cellulitis. Her hospital/treatment course included: antibiotics IV Vancomycin and Zosyn. Vascular surgery-Dr Saul was consulted and performed right balloon dilatation of iliac vein and stent yesterday due to stenosis of previous stent. Patient did well post op. Her wound culture resulted in E coli, ESBL. PICC line placed. Patient will receive IV invanz to complete course. She was discharged in stable condition. Instructed to follow up with pcp and vascular surgery in 1 week. Patient Disposition: HOME HEALTH SERVICE Condition: Stable Health Concerns: Post Hospitalization: new medications and changes needed to prevent readmission or further decline. Pt educated and given instructions on all concerns. Care Plan Goals: Problem: Pain/Alteration in Comfort Goal: Improve/ Resolve Pain; Achieve Pain Tolerance Instructions: Take pain medications as prescribed. Contact your primary care provider if your pain is unrelieved or worsens. Follow up with primary care provider as directed. Plan of Treatment: Continue with present treatment and follow up plan. Pt is to keep follow up appointment as instructed and take medications as ordered. Prescriptions: New ertapenem 1 gram Recon Soln 1 g IV Q24H Qty: 10 0RF Continued hydrocodone-acetaminophen 7.5-325 mg tablet 1 tab PO QID PRN gabapentin 100 mg capsule 100 mg PO QPM cetirizine 10 mg tablet 10 mg PO QPM fluticasone propionate 50 mcg/actuation spray,suspension 1 spray intranasal QDAY Eliquis 5 mg tablet 5 mg PO BID Qty: 74 0RF Rx Instructions: 10 mg bid for 7 days then 5mg bid for 6 months metoprolol tartrate 50 mg tablet 100 mg PO QAM Rx Instructions: take 2 tabs every morning, 1 tab in the evening lisinopril-hydrochlorothiazide 20-25 mg tablet 20 - 25 tab PO QAM Patient Comments: TAKE 1 TABLET BY MOUTH ONCE DAILY oxybutynin chloride 15 mg tablet extended release 24hr 15 mg PO QDAY Gemtesa 75 mg tablet 75 mg PO QDAY metoprolol tartrate 50 mg tablet 50 mg PO HS Patient Comments: TAKE TWO TABLETS BY MOUTH EVERY MORNING THEN TAKE ONE TABLET BY MOUTH EVERY EVENING Follow ups/Referrals Follow ups/Referrals: Sheyla Infante [Nurse Practitioner] - 09/15/24 10:40 am Santy Saul [STAFF PHYSICIAN] - 09/22/24 4:00 pm Instructions Instructions: Cellulitis, Adult, Cellulitis, Adult, [id number] Stand Alone Forms: Excuse From Work or School, Find Help Web Site, [facility] Follow Up Care
--- NOTE | 2024-09-12 22:27 | DR.OPNOTE ---
OP NOTE Pre-Op Diagnosis: stenosis of existing right iliac vein stent with right ankle ulcer Post-Op Diagnosis: same , see findings Procedure Date Date Of Procedure: 09/09/24 Procedure: PROCEDURE:RIGHT ILIAC VENOGRAM, RIGHT ILIAC VEIN INTRAVASCULAR ULTRA SOUND, BALLOON ANGIOPLASTY OF EXISTING STENT IN THE RIGHT COMMON ILIAC VEIN WITH GREATER THAN 75% STENOSIS NARRATIVE : The patient was taken to the operative suite and placed in the supine position. The right groin was prepped and draped in sterile fashion. The patient was administered intravenous sedation supervised by myself. Time out for the procedure obtained. Ultrasound used to identify the right greater saphenous vein and the skin overlying it infiltrated with 0.5% Marcaine . Ultrasound then used to guide puncture of the right greater saphenous vein and a 0.012 inch guide wire placed . Incision made over this guide wire at the skin edge with a # 11 knife blade and a micro sheath placed over the guide wire into the right greater saphenous vein and into the femoral vein. The small guide wire exchanged for a 0.035 inch Advantage glide wire and the micro sheath exchanged for a 10 Fr vascular sheath. The patient was given 5000 units of intravenous heparin. Right iliac venogram carried out showing severe stenosis of the existing right common iliac vein stent . Right lliac vein intravascular ultrasound carried out over the wire showing greater than 75 % stenosis of the existing right common iliac stent . Over the wire we placed a 16mm esophagea balloon. The area in question was balloon dilated with this 16 mm esophageal balloon inflating it to 5 mm of Hg and removing it. Post-procedure intravascular ultrasound showed some residual stenosis . The area then dilated with an 18 mm esophageal balloon infalting to 5 atmospheres. Repeat IVUS showed good resilts . Wire and sheath in the groin removed and direct pressure held over the groin puncture site for 10 minutes. The patient was given 30 mg of intravenous Protamine. Hemostatic dressing applied to each puncture site and the patient taken to the floor good condition. Type of Anesthesia: Local (0.5 % Marcaine ) Anesthesia Comment: plus MAC Findings: 75% stenosis of right iliac vein stent Type of Fluids Used:: Lactated Ringers Total Amount of Fluid Infused:: 200 cc EBL: 100 cc Complications:: none Needle/Sponge Count:: correct Disposition/Condition: Pt. tolerated procedure without difficulty. Taken to [facility] in stable condition.
== END 2024-09-10 17:25 | disposition home health service (06) ==
LOC: MED/SURG 16:32 → ER 16:32 → MED/SURG 22:32
PROVIDERS: ADMIT Family Medicine; ATTEND Internal Medicine
DX: R26.89 Other abnormalities of gait and mobility; E87.6 Hypokalemia; E83.42 Hypomagnesemia; R60.0 Localized edema; B96.29 Other Escherichia coli [E. coli] as the cause of diseases classified elsewhere; M79.661 Pain in right lower leg; Z68.44 Body mass index [BMI] 60.0-69.9, adult; Z16.29 Resistance to other single specified antibiotic; Z86.718 Personal history of other venous thrombosis and embolism; E66.01 Morbid (severe) obesity due to excess calories; I77.1 Stricture of artery; L97.318 Non-pressure chronic ulcer of right ankle with other specified severity; L03.115 Cellulitis of right lower limb; Z01.810 Encounter for preprocedural cardiovascular examination; I10 Essential (primary) hypertension; I83.013 Varicose veins of right lower extremity with ulcer of ankle; Z16.23 Resistance to quinolones and fluoroquinolones; Z16.12 Extended spectrum beta lactamase (ESBL) resistance